=== PATIENT | female | born 1975 | race American Indian/Alaskan Native ===

== ENCOUNTER 2017-01-31 01:23 | Emergency (ER) | payer OTHER ==
[2017-01-31 01:39] VITALS: BP 149/100
[2017-01-31 01:57] LABS: Basophils % (Auto) 1.2 % (0.0-1.8); Eosinophils % (Auto) 1.7 % (0.0-4.3); Hematocrit 37.8 % (30.3-42.9); Hemoglobin 12.6 gm/dl (10.1-14.3); Mean Corpuscular HGB Conc 33 % (30-34); Mean Corpuscular Hemoglobin 27 pg (28-32); Mean Corpuscular Volume 80 fl (79-97); Platelet Count 347 K/mm3 (140-440); Red Blood Count 4.74 M/mm3 (3.65-5.03); Red Cell Distribution Width 17.5 % (13.2-15.2); White Blood Count 4.7 K/mm3 (4.5-11.0)
[2017-01-31 02:16] LABS: Alanine Aminotransferase 13 units/L (7-56); Albumin 4.2 g/dL (3.9-5); Albumin/Globulin Ratio 1.2 %; Alkaline Phosphatase 49 units/L (35-129); Anion Gap 18 mmol/L; BUN/Creatinine Ratio 18.88; Blood Urea Nitrogen 17 mg/dL (7-17); Calcium 9.2 mg/dL (8.4-10.2); Carbon Dioxide 23 mmol/L (22-30); Chloride 99.2 mmol/L (98-107); Glucose 97 mg/dL (65-100); Lipase 32 units/L (13-60); Potassium 4.1 mmol/L (3.6-5.0); Sodium 136 mmol/L (137-145); Total Protein 7.6 g/dL (6.3-8.2)
[2017-01-31 02:27] LABS: INR 1.03 (0.87-1.13)
[2017-01-31 02:28] LABS: Partial Thromboplastin Time 28.1 Sec. (24.2-36.6)
== END 2017-01-31 04:21 | disposition left against medical advice (07) ==
LOC: ED 01:23
DX: R10.9 Unspecified abdominal pain (principal); R11.10 Vomiting, unspecified; M54.9 Dorsalgia, unspecified; Z53.21 Procedure and treatment not carried out due to patient leaving prior to being seen by health care provider
CPT/HCPCS: 36415; 80053; 83690; 84484; 84703; 85025; 85610; 85730; 93005; 93010

== ENCOUNTER 2018-10-07 21:22 | Emergency (ER) | payer SELFPAY ==
--- NOTE | 2018-10-07 21:42 | Emergency Department Report ---
Blank Doc - Documentation Documentation: This is a 43-year-old female that presents with abdominal pain and n/v. This initial assessment/diagnostic orders/clinical plan/treatment(s) is/are subject to change based on patient's health status, clinical progression and re- assessment by fellow clinical providers in the ED. Further treatment and workup at subsequent clinical providers discretion. Patient/guardians urged not to elope from the ED as their condition may be serious if not clinically assessed and managed. Initial orders include: 1- Patient sent to [facility] for further evaluation and treatment 2- labs 3- UA
[2018-10-07 21:44] VITALS: BP 131/95
[2018-10-07 22:00] LABS: Basophils # (Auto) 0.1 K/mm3 (0.0-0.1); Basophils % (Auto) 1.1 % (0.0-1.8); Eosinophils # (Auto) 0.1 K/mm3 (0.0-0.4); Eosinophils % (Auto) 1.2 % (0.0-4.3); Hematocrit 36.9 % (30.3-42.9); Hemoglobin 12.1 gm/dl (10.1-14.3); Lymphocytes # (Auto) 1.7 K/mm3 (1.2-5.4); Lymphocytes % (Auto) 31.7 % (13.4-35.0); Mean Corpuscular HGB Conc 33 % (30-34); Mean Corpuscular Volume 81 fl (79-97); Monocytes # (Auto) 0.6 K/mm3 (0.0-0.8); Monocytes % (Auto) 10.3 % (0.0-7.3); Platelet Count 378 K/mm3 (140-440); Red Blood Count 4.57 M/mm3 (3.65-5.03); Red Cell Distribution Width 15.3 % (13.2-15.2)
[2018-10-07 22:23] LABS: Alanine Aminotransferase 12 units/L (7-56); Albumin 3.8 g/dL (3.9-5); BUN/Creatinine Ratio 12; Blood Urea Nitrogen 12 mg/dL (7-17); Calcium 8.9 mg/dL (8.4-10.2); Hemolysis Index 15
[2018-10-07 22:28] LABS: Bilirubin,Direct < 0.2 mg/dL (0-0.2)
== END 2018-10-07 23:10 | disposition left against medical advice (07) ==
LOC: ED 21:22
DX: R10.9 Unspecified abdominal pain (principal); R11.2 Nausea with vomiting, unspecified; Z53.21 Procedure and treatment not carried out due to patient leaving prior to being seen by health care provider
CPT/HCPCS: 36415; 80048; 80076; 83690; 84703; 85025

== ENCOUNTER 2019-04-02 21:47 | Emergency (ER) | payer BC ==
[2019-04-02 21:55] VITALS: BP 182/102
[2019-04-02] MEDS ORDERED: ASPIRIN 325 MG TAB PO ONE (22:10)
--- NOTE | 2019-04-02 22:11 | Event Note ---
ED Screening Note Date of service: 04/02/19 Time: 22:07 ED Screening Note: This is a 43 y.o. F. that presents to the ER with chest pain and headache for 1 hour. PMH of HTN, HLD, aortic aneurysm, and thoracic aneurysm Patient states it feel like someone is sitting on her chest. This initial assessment/diagnostic orders/clinical plan/treatment(s) is/are subject to change based on patients health status, clinical progression and re- assessment by fellow clinical providers in the ED. Further treatment and workup at subsequent clinical providers discretion. Patient/guardian urged not to elope from the ED as their condition may be serious if not clinically assessed and managed. Initial orders include: Labs, EKG, & CXR
[2019-04-02 22:50] LABS: Basophils % (Auto) 0.4 % (0.0-1.8); Eosinophils # (Auto) 0.1 K/mm3 (0.0-0.4); Eosinophils % (Auto) 1.6 % (0.0-4.3); Hematocrit 32.3 % (30.3-42.9); Hemoglobin 10.4 gm/dl (10.1-14.3); Lymphocytes # (Auto) 1.4 K/mm3 (1.2-5.4); Lymphocytes % (Auto) 36.2 % (13.4-35.0); Mean Corpuscular HGB Conc 32 % (30-34); Mean Corpuscular Volume 75 fl (79-97); Monocytes # (Auto) 0.6 K/mm3 (0.0-0.8); Monocytes % (Auto) 15.6 % (0.0-7.3); Platelet Count 284 K/mm3 (140-440); Red Blood Count 4.31 M/mm3 (3.65-5.03); Red Cell Distribution Width 16.7 % (13.2-15.2)
--- NOTE | 2019-04-02 23:12 | XRay Report ---
CHEST 1 VIEW INDICATION / CLINICAL INFORMATION: Chest Pain. COMPARISON: 04/30/2016 FINDINGS: SUPPORT DEVICES: None. HEART / MEDIASTINUM: No significant abnormality. LUNGS / PLEURA: No significant pulmonary or pleural abnormality. No pneumothorax. ADDITIONAL FINDINGS: No significant additional findings. IMPRESSION: 1. No acute findings. Signer Name: Santana Cotton MD Signed: 04/02/2019 11:08 PM Workstation Name: [id number]
[2019-04-02 23:13] LABS: BUN/Creatinine Ratio 21; Blood Urea Nitrogen 17 mg/dL (7-17); Calcium 8.5 mg/dL (8.4-10.2); Hemolysis Index 3
== END 2019-04-02 23:45 | disposition left against medical advice (07) ==
LOC: ED 21:47
DX: R07.89 Other chest pain (principal); Z53.21 Procedure and treatment not carried out due to patient leaving prior to being seen by health care provider
CPT/HCPCS: 36415; 71045; 80048; 84484; 85025; 93005; 93010

== ENCOUNTER 2020-11-21 21:21 | Observation (INO) | payer BC, OTHER ==
[2020-11-21] MEDS ORDERED: ASPIRIN 325 MG TAB PO ONE (21:59)
[2020-11-21] MEDS ORDERED: SODIUM CHLORIDE 0.9% 1000 ML 1,000 ML IV ONE (22:23)
[2020-11-21] MEDS ORDERED: MORPHINE 4 MG/1 ML INJ IV ONE (22:23)
[2020-11-21] MEDS ORDERED: ONDANSETRON 4 MG/2 ML INJ IV ONE (22:23)
[2020-11-21 22:24] LABS: Basophils % (Auto) 0.8 % (0.0-1.8); Eosinophils % (Auto) 0.4 % (0.0-4.3); Hematocrit 32.2 % (30.3-42.9); Hemoglobin 10.4 gm/dl (10.1-14.3); Lymphocytes # (Auto) 1.1 K/mm3 (1.2-5.4); Lymphocytes % (Auto) 20.2 % (13.4-35.0); Mean Corpuscular HGB Conc 32 % (30-34); Mean Corpuscular Volume 75 fl (79-97); Monocytes # (Auto) 0.4 K/mm3 (0.0-0.8); Monocytes % (Auto) 6.8 % (0.0-7.3); Platelet Count 392 K/mm3 (140-440); Red Blood Count 4.29 M/mm3 (3.65-5.03); Red Cell Distribution Width 17.8 % (13.2-15.2)
--- NOTE | 2020-11-21 22:28 | Emergency Department Report ---
ED Chest Pain HPI - General Chief Complaint: Chest Pain Stated Complaint: CHEST/BACK PAIN/HEADACHE Time Seen by Provider: 11/21/20 22:08 Source: patient Mode of arrival: Ambulatory Limitations: No Limitations - History of Present Illness Initial Comments: This is a 45-year-old -[place] female presents to the emergency department with a complaint of mid to upper thoracic back pain with radiation to the middle of her chest that started about a few hours prior to presentation. She says that it is a severe pressure-like discomfort and it worsens when laying flat. Currently she says it is 9 out of 10 in intensity. Patient also had a headache earlier that has since resolved. She denies any fever, cough, shortness of breath, lower extremity swelling, nausea, vomiting or diaphoresis. The patient has a past medical history of hypertension, thoracic aneurysm, high cholesterol, sleep apnea, and has a history of a left nephrectomy secondary to renal cancer. She has not taken anything for symptoms prior to presentation today. She has a significant family history of early cardiac disease in her mother and father who had MIs in their late 30s and early 40s. Denies tobacco or illicit drug use. No recent travel or sick contacts at home. Her primary care physician is through [facility], and she follows with Dr. Brewer for cardiology. Severity scale (0 -10): 10 - Related Data Home Medications Medication Instructions Recorded Confirmed Last Taken Valsartan/Hydrochlorothiazide 1 tab PO QDAY 05/26/15 12/26/17 05/26/15 06:00 [Diovan Hct 160-25 mg] Previous Rx's Medication Instructions Recorded Last Taken Type Simvastatin (Nf) [Zocor TAB] 20 mg PO QHS #30 tablet 03/03/15 05/25/15 22:00 Rx Famotidine [Pepcid] 20 mg PO BID #30 tablet 12/27/17 Unknown Rx carvediloL [Coreg] 6.25 mg PO BID 30 Days tablet 12/27/17 Unknown Rx traMADoL [Ultram 50 MG tab] 50 mg PO Q6HR PRN #12 tablet 12/27/17 Unknown Rx Allergies Allergy/AdvReac Type Severity Reaction Status Date / Time No Known Allergies Allergy Verified 12/26/17 18:18 Heart Score - HEART Score History: Moderately suspicious EKG: Normal Age: 45-65 Risk factors: 1-2 risk factors Troponin: < normal limit HEART Score: 3 - EKG Read Time Time EKG Completed: 21:33 EKG Read Time: 21:34 - Critical Actions Critical Actions: 0-3 pts:0.9-1.7%risk of adverse cardiac event.Candidate for discharge ED Review of Systems ROS: Stated complaint: CHEST/BACK PAIN/HEADACHE Other details as noted in HPI ED Past Medical Hx - Past Medical History Previous Medical History?: Yes Hx Hypertension: Yes Hx Heart Attack/AMI: No Hx Congestive Heart Failure: No Hx Diabetes: No Hx Deep Vein Thrombosis: No Hx Pulmonary Embolism: No Hx Arthritis: Yes Hx Asthma: No Hx COPD: No Hx Tuberculosis: No Hx HIV: No Additional medical history: AAA-- 4.1 CM IN OCTOBER. HIGH CHOLESTEROL, sleep apnea, aortic anurism - Surgical History Hx Coronary Stent: No Hx Pacemaker: No Hx Internal Defibrillator: No Additional Surgical History: TONSILLECTOMY, gastric sleeve 12/01/18. L partial kidney removal, secondary to Ca 03/2020 - Social History Smoking Status: Never Smoker Substance Use Type: None - Medications Home Medications: Home Medications Medication Instructions Recorded Confirmed Last Taken Type Simvastatin (Nf) [Zocor TAB] 20 mg PO QHS #30 tablet 03/03/15 12/26/17 05/25/15 22:00 Rx Valsartan/Hydrochlorothiazide 1 tab PO QDAY 05/26/15 12/26/17 05/26/15 06:00 History [Diovan Hct 160-25 mg] Famotidine [Pepcid] 20 mg PO BID #30 tablet 12/27/17 Unknown Rx carvediloL [Coreg] 6.25 mg PO BID 30 Days tablet 12/27/17 Unknown Rx traMADoL [Ultram 50 MG tab] 50 mg PO Q6HR PRN #12 tablet 12/27/17 Unknown Rx ED Physical Exam - General Limitations: No Limitations - Other Other exam information: GENERAL: The patient is well-developed well-nourished. HENT: Normocephalic. Atraumatic. Patient has moist mucous membranes. EYES: Extraocular motions are intact. NECK: Supple. Trachea is midline. CHEST/LUNGS: Clear to auscultation. There is no respiratory distress noted. Unable to reproduce chest pain to palpation of the chest wall. HEART/CARDIOVASCULAR: Regular. There is no tachycardia. There is no murmur. ABDOMEN: Abdomen is soft, nontender. Patient has normal bowel sounds. SKIN: Skin is warm and dry. NEURO: The patient is awake, alert, and oriented. The patient is cooperative. The patient has no focal neurologic deficits. Normal speech. MUSCULOSKELETAL: There is no tenderness or deformity. There is no limitation range of motion. BACK: No midline thoracic or lumbar tenderness to palpation. ED Course Vital Signs 11/21/20 11/21/20 21:40 22:12 Temperature 99.1 F Pulse Rate 103 H Respiratory 20 18 Rate Blood Pressure 146/98 Blood Pressure 134/89 [Left] O2 Sat by Pulse 100 Oximetry HITESH score - Hitesh Score Age > 65: (0) No Aspirin use within the Past 7 Days: (0) No 3 or more CAD Risk Factors: (1) Yes 2 or more Angina events in past 24 hrs: (1) Yes Known CAD with more than 50% Stenosis: (0) No Elevated Cardiac Markers: (0) No ST Deviation Greater than 0.5mm: (0) No HITESH Score: 2 ED Medical Decision Making - Lab Data Result diagrams: 11/21/20 22:12 11/21/20 22:12 - EKG Data -: EKG Interpreted by Me EKG shows normal: sinus rhythm, axis, intervals, QRS complexes (LVH), ST-T waves Rate: normal - EKG Data When compared to previous EKG there are: no significant change Interpretation: unchanged when compared t (04/02/19) - Radiology Data Radiology results: report reviewed, image reviewed interpreted by me: Chest x-ray does not show any acute process. There are no pleural effusions, obvious pneumonia and there is no pneumothorax. No significant cardiomegaly. No widened mediastinum. CTA CHEST WITH IV CONTRAST INDICATION / CLINICAL INFORMATION: Back and Chest pain, Hx of Thoracic Aneurysm. TECHNIQUE: Axial CT images were obtained through the chest after injection of 100 cc Omnipaque 350 milligrams percent IV c ontrast. 3 plane MIP and/or 3D reconstructions were produced. All CT scans at this location are performed using CT dose reduction for ALARA by means of automated exposure control. COMPARISON: 12/26/2017 and CTA chest FINDINGS: PULMONARY ARTERIES: No pulmonary emboli. THORACIC AORTA: Slight ectasia of the ascending thoracic aorta without evidence of dissection or aneurysm HEART: No significant abnormality. CORONARY ARTERIES: No significant calcification. PLEURA: No pleural effusion. No pneumothorax. LYMPH NODES: No significant adenopathy. LUNGS: No acute air space or interstitial disease. ADDITIONAL FINDINGS: None. UPPER ABDOMEN: No acute findings. SKELETAL STRUCTURES: No significant osseous abnormality. IMPRESSION: 1. No CT evidence for pulmonary embolism. 2. Slight ectasia of the ascending thoracic aorta without interval change as compared 12/26/2017 - Medical Decision Making This patient presents with some acute substernal chest pain and pain to the middle of her upper back that started just prior to presentation. Heart and lung sounds are normal to auscultation. EKG did not have any morphology consistent with ST elevation myocardial infarction. Chest x-ray does not show any pneumonia, pleural effusions, pneumothorax, widened mediastinum, or any acute process. Labs have thus far been unremarkable including CBC, metabolic panel and a negative troponin. Given her history of a thoracic aneurysm and her current chest to back pain, the patient had a CT angiography of the chest that did not show any pulmonary embolism, dissection, significant aneurysm, or any other acute process. Patient was given pain medication with only some slight improvement. She has a moderate heart score. It has been a few years since the patient last had a stress test and she follows with Dr. Brewer. She will be admitted to the hospital for further evaluation and treatment and was accepted for admission by the hospitalist, Dr. Llanes. Critical Care Time: No Critical care attestation.: If time is entered above; I have spent that time in minutes in the direct care of this critically ill patient, excluding procedure time. ED Disposition Clinical Impression: Acute chest pain, Chest pain, rule out acute myocardial infarction, Angina at rest Disposition: OP ADMIT IP TO THIS HOSP Is pt being admited?: Yes Condition: Fair Time of Disposition: 02:13
[2020-11-21 22:48] LABS: INR 0.97 (0.87-1.13)
[2020-11-21 22:48] LABS: Alanine Aminotransferase 7 units/L (7-56); Albumin 4.6 g/dL (3.9-5); Blood Urea Nitrogen 11 mg/dL (7-17); Calcium 9.1 mg/dL (8.4-10.2); Hemolysis Index 2
[2020-11-21 22:49] LABS: BUN/Creatinine Ratio 16
[2020-11-21 22:49] LABS: Partial Thromboplastin Time 29.3 Sec. (24.2-36.6)
--- NOTE | 2020-11-21 22:52 | XRay Report ---
CHEST 2 VIEWS INDICATION: CP. COMPARISON: FINDINGS: Support devices: None. Heart: Within normal limits. Lungs: No acute air space or interstitial disease. Pleura: No significant pleural effusion. No pneumothorax. Additional findings: None. IMPRESSION: 1. No acute findings. Signer Name: Dawson Ugalde MD Signed: 11/21/2020 10:47 PM Workstation Name: [id number]
--- NOTE | 2020-11-22 00:48 | Cat Scan Report ---
CTA CHEST WITH IV CONTRAST INDICATION / CLINICAL INFORMATION: Back and Chest pain, Hx of Thoracic Aneurysm. TECHNIQUE: Axial CT images were obtained through the chest after injection of 100 cc Omnipaque 350 milligrams pe rcent IV contrast. 3 plane MIP and/or 3D reconstructions were produced. All CT scans at this location are performed using CT dose reduction for ALARA by means of automated exposure control. COMPARISON: 12/26/2017 and CTA chest FINDINGS: PULMONARY ARTERIES: No pulmonary emboli. THORACIC AORTA: Slight ectasia of the ascending thoracic aorta without evidence of dissection or aneu rysm HEART: No significant abnormality. CORONARY ARTERIES: No significant calcification. PLEURA: No pleural effusion. No pneumothorax. LYMPH NODES: No significant adenopathy. LUNGS: No acute air space or interstitial disease. ADDITIONAL FINDINGS: None. UPPER ABDOMEN: No acute findings. SKELETAL STRUCTURES: No significant osseous abnormality. IMPRESSION: 1. No CT evidence for pulmonary embolism. 2. Slight ectasia of the ascending thoracic aorta without interval change as compared 12/26/2017 Signer Name: Dawson Ugalde MD Signed: 11/22/2020 12:44 AM Workstation Name: [id number]
[2020-11-22] MEDS ORDERED: traMADol 50 MG TAB PO PRN (01:48)
[2020-11-22] MEDS ORDERED: MORPHINE 2 MG/1 ML INJ IV PRN (01:48)
[2020-11-22] MEDS ORDERED: NITROGLYCERIN 0.4 MG TAB SUBL SL PRN (01:48)
[2020-11-22] MEDS ORDERED: ALBUTEROL 2.5 MG/3 ML NEBU IH PRN (01:48)
[2020-11-22] MEDS ORDERED: ACETAMINOPHEN 325 MG TAB PO PRN ×2 (01:48)
[2020-11-22] MEDS ORDERED: ONDANSETRON 4 MG/2 ML INJ IV PRN (01:48)
[2020-11-22] MEDS ORDERED: hydrALAZINE 20 MG/1 ML INJ IV PRN (01:53)
--- NOTE | 2020-11-22 01:57 | History and Physical Report ---
History of Present Illness Date of examination: 11/22/20 Date of admission: 11/22/20 01:13 Chief complaint: Chest pain History of present illness: 45-year-old -[place] female with history of hypertension, thoracic aneurysm, high cholesterol, sleep apnea, and has a history of a left nephrectomy secondary to renal cancer was brought to the emergency department with a complaint of mid to upper thoracic back pain with radiation to the middle of her chest 9/10 for few hours prior to presentation. She says that it is a severe pressure-like discomfort and it worsens when laying flat. Patient also had a headache earlier that has since resolved. She denies any fever, cough, shortness of breath, lower extremity swelling, nausea, vomiting or diaphoresis. She has not taken anything for symptoms prior to presentation today. She has a significant family history of early cardiac disease in her mother and father who had MIs in their late 30s and early 40s. Denies tobacco or illicit drug use. No recent travel or sick contacts at home. Her primary care physician is through [facility] [place], and she follows with Dr. Brewer for cardiology. In the emergency room initial cardiac enzyme is negative troponin is 0.010 Past History Past Medical History: arthritis, hypertension, hyperlipidemia, other (Aortic aneurysm sleep apnea) Past Surgical History: Other (Left nephrectomy) Medications and Allergies Allergies Allergy/AdvReac Type Severity Reaction Status Date / Time No Known Allergies Allergy Verified 12/26/17 18:18 Home Medications Medication Instructions Recorded Confirmed Last Taken Type Simvastatin (Nf) [Zocor TAB] 20 mg PO QHS #30 tablet 03/03/15 12/26/17 05/25/15 22:00 Rx Valsartan/Hydrochlorothiazide 1 tab PO QDAY 05/26/15 12/26/17 05/26/15 06:00 History [Diovan Hct 160-25 mg] Famotidine [Pepcid] 20 mg PO BID #30 tablet 12/27/17 Unknown Rx carvediloL [Coreg] 6.25 mg PO BID 30 Days tablet 12/27/17 Unknown Rx traMADoL [Ultram 50 MG tab] 50 mg PO Q6HR PRN #12 tablet 12/27/17 Unknown Rx Active Meds: Active Medications Sodium Chloride (Nacl 0.9% 1000 Ml) 1,000 mls @ 125 mls/hr IV ONCE ONE Stop: 11/22/20 06:22 Last Admin: 11/21/20 23:42 Dose: 125 mls/hr Documented by: Review of Systems Cardiovascular: chest pain Exam - Constitutional Vitals: Temp Pulse Resp BP Pulse Ox 99.1 F 103 H 18 134/89 100 11/21/20 21:40 11/21/20 21:40 11/21/20 22:12 11/21/20 21:40 11/21/20 21:40 General appearance: Present: no acute distress, well-nourished - EENT Eyes: Present: PERRL ENT: hearing intact, clear oral mucosa - Neck Neck: Present: supple, normal ROM - Respiratory Respiratory effort: normal Respiratory: bilateral: CTA - Cardiovascular Heart Sounds: Present: S1 & S2. Absent: rub, click - Extremities Extremities: pulses symmetrical, No edema Peripheral Pulses: within normal limits - Abdominal General gastrointestinal: Present: soft, non-tender, non-distended, normal bowel sounds Female genitourinary: Present: normal - Integumentary Integumentary: Present: clear, warm, dry - Musculoskeletal Musculoskeletal: gait normal, strength equal bilaterally - Psychiatric Psychiatric: appropriate mood/affect, intact judgment & insight - Neurologic Neurologic: CNII-XII intact, moves all extremities HEART Score - HEART Score EKG: Normal Age: 45-65 Risk factors: 1-2 risk factors Troponin: Troponin T 0.012 ng/mL (0.00-0.029) 11/22/20 00:58 Troponin: < normal limit - Critical Actions Critical Actions: 0-3 pts:0.9-1.7%risk of adverse cardiac event.Candidate for discharge Results - Labs CBC & Chem 7: 11/21/20 22:12 11/21/20 22:12 Labs: Laboratory Last Values WBC 5.5 K/mm3 (4.5-11.0) 11/21/20 22:12 RBC 4.29 M/mm3 (3.65-5.03) 11/21/20 22:12 Hgb 10.4 gm/dl (10.1-14.3) 11/21/20 22:12 Hct 32.2 % (30.3-42.9) 11/21/20 22:12 MCV 75 fl (79-97) L 11/21/20 22:12 MCH 24 pg (28-32) L 11/21/20 22:12 MCHC 32 % (30-34) 11/21/20 22:12 RDW 17.8 % (13.2-15.2) H 11/21/20 22:12 Plt Count 392 K/mm3 (140-440) 11/21/20 22:12 Lymph % (Auto) 20.2 % (13.4-35.0) 11/21/20 22:12 [place] % (Auto) 6.8 % (0.0-7.3) 11/21/20 22:12 Eos % (Auto) 0.4 % (0.0-4.3) 11/21/20 22:12 Baso % (Auto) 0.8 % (0.0-1.8) 11/21/20 22:12 Lymph # (Auto) 1.1 K/mm3 (1.2-5.4) L 11/21/20 22:12 [place] # (Auto) 0.4 K/mm3 (0.0-0.8) 11/21/20 22:12 Eos # (Auto) 0.0 K/mm3 (0.0-0.4) 11/21/20 22:12 Baso # (Auto) 0.0 K/mm3 (0.0-0.1) 11/21/20 22:12 Seg Neutrophils % 71.8 % (40.0-70.0) H 11/21/20 22:12 Seg Neutrophils # 4.0 K/mm3 (1.8-7.7) 11/21/20 22:12 PT 13.5 Sec. (12.2-14.9) 11/21/20 22:18 INR 0.97 (0.87-1.13) 11/21/20 22:18 APTT 29.3 Sec. (24.2-36.6) 11/21/20 22:18 Sodium 139 mmol/L (137-145) 11/21/20 22:12 Potassium 3.7 mmol/L (3.6-5.0) 11/21/20 22:12 Chloride 102.1 mmol/L (98-107) 11/21/20 22:12 Carbon Dioxide 22 mmol/L (22-30) 11/21/20 22:12 Anion Gap 19 mmol/L 11/21/20 22:12 BUN 11 mg/dL (7-17) 11/21/20 22:12 Creatinine 0.7 mg/dL (0.6-1.2) 11/21/20 22:12 Estimated GFR > 60 ml/min 11/21/20 22:12 BUN/Creatinine Ratio 16 % 11/21/20 22:12 Glucose 95 mg/dL (65-100) 11/21/20 22:12 Calcium 9.1 mg/dL (8.4-10.2) 11/21/20 22:12 Total Bilirubin 0.30 mg/dL (0.1-1.2) 11/21/20 22:12 AST 15 units/L (5-40) 11/21/20 22:12 ALT 7 units/L (7-56) 11/21/20 22:12 Alkaline Phosphatase 80 units/L (35-129) 11/21/20 22:12 Troponin T 0.012 ng/mL (0.00-0.029) 11/22/20 00:58 Total Protein 7.5 g/dL (6.3-8.2) 11/21/20 22:12 Albumin 4.6 g/dL (3.9-5) 11/21/20 22:12 Albumin/Globulin Ratio 1.6 % 11/21/20 22:12 - Imaging and Cardiology CT scan - chest: report reviewed Assessment and Plan VTE prophylaxis?: Chemical Plan of care discussed with patient/family: Yes - Patient Problems (1) Acute coronary syndrome Current Visit: Yes Status: Acute Plan to address problem: Admit the patient to the medical telemetry. Aspirin 325 mg p.o. daily. Lipitor 80 mg p.o. daily. Nitroglycerin 1 inch to the chest wall every 6 hours. We do the serial cardiac enzyme. We also do echocardiogram and consult cardiology (2) Aortic aneurysm Current Visit: No Status: Acute Plan to address problem: Stable. We will continue the home medication. Will consult cardiology for evaluation (3) HTN (hypertension) Current Visit: No Status: Chronic Qualifiers: Hypertension type: essential hypertension Qualified Code(s): I10 - Essential (primary) hypertension Plan to address problem: Hydrochlorothiazide 25 mg p.o. daily, hydralazine 10 mg every 6 hours as needed. Diovan 160 mg p.o. daily. We will monitor the blood pressure closely (4) Hyperlipidemia Current Visit: No Status: Chronic Qualifiers: Hyperlipidemia type: Mixed hyperlipidemia Qualified Code(s): E78.2 - Mixed hyperlipidemia Plan to address problem: We will put the patient on Lipitor 80 mg p.o. daily. We will recheck the lipid panel in the morning (5) DVT prophylaxis Current Visit: No Status: Acute Plan to address problem: Heparin 5000 units subcu every 8 hours for DVT prophylaxis. Pepcid 20 mg p.o. twice daily for GI prophylaxis. Patient is a full code
[2020-11-22] MEDS: HEPARIN 5,000 UNIT/1 ML VIAL SUB-Q SCH ×3 (05:08→21:27)
[2020-11-22] MEDS ORDERED: NITROGLYCERIN 2% OINT 1 GM TP SCH (06:00)
[2020-11-22 06:24] LABS: Basophils % (Auto) 0.9 % (0.0-1.8); Eosinophils % (Auto) 0.9 % (0.0-4.3); Hematocrit 30.5 % (30.3-42.9); Hemoglobin 10.4 gm/dl (10.1-14.3); Lymphocytes # (Auto) 1.3 K/mm3 (1.2-5.4); Lymphocytes % (Auto) 27.2 % (13.4-35.0); Mean Corpuscular HGB Conc 34 % (30-34); Mean Corpuscular Volume 74 fl (79-97); Monocytes # (Auto) 0.6 K/mm3 (0.0-0.8); Monocytes % (Auto) 11.9 % (0.0-7.3); Platelet Count 349 K/mm3 (140-440); Red Blood Count 4.13 M/mm3 (3.65-5.03); Red Cell Distribution Width 17.9 % (13.2-15.2)
[2020-11-22 06:43] LABS: Blood Urea Nitrogen 7 mg/dL (7-17); Calcium 8.6 mg/dL (8.4-10.2); Hemolysis Index 0
[2020-11-22 06:46] LABS: BUN/Creatinine Ratio 14
[2020-11-22] MEDS: IPRATROPIUM/ALBUTEROL SULFATE 3 ML AMPUL.NEB IH SCH ×4 (07:20→21:43)
--- NOTE | 2020-11-22 09:53 | Consultation ---
History of Present Illness Consult date: 11/22/20 Requesting physician: DALE GRANADOS Consult reason: chest pain History of present illness: Primary Process Improvement Analyst: Rory Brewer Pt is a 45-year-old AA female with a hx of TAA (4.3cm 11/2018) and HTN who presented with complaints of back pain and chest pain. Pt states she was standing outside with family the AM prior to arrival when she felt a sudden "squeezing" pain in the upper mid thoracic area of her back. She states the pain was constant and severe, and shortly after began radiating to the center of her chest. Similarly, she describes the chest pain as "squeezing pressure." Pain exacerbated by lying back. She notes some relief when sitting up. No additional cardiac complaints. Trop neg x 4. ECG reveals no acute ischemic changes. Chest CTA revealed no evidence of PE, slight ectasia of ascending thoracic aortia without interval changes compared to 12/2017 & no evidence of dissection or aneurysm. Lexiscan stress MPI 12/2017 - no evidence of significant ischemia. Echo 10/2015 - EF 55-60%, asymmetric thickening of the interventricular septum (may be overestimated), impaired LV relaxation, normal RV fxn, no significant valvular abnormalities. Past History Past Medical History: arthritis, hypertension, hyperlipidemia, other (TAA) Past Surgical History: Other (L nephrectomy). denies: valve replacement, CABG, PTCA Social history: smoking (former). denies: alcohol abuse Family history: CAD Medications and Allergies Allergies Allergy/AdvReac Type Severity Reaction Status Date / Time No Known Allergies Allergy Verified 12/26/17 18:18 Home Medications Medication Instructions Recorded Confirmed Last Taken Type Losartan [Cozaar] 25 mg PO QDAY 11/22/20 11/22/20 1 Day Ago History ~11/21/20 amLODIPine [Norvasc] 5 mg PO DAILY 11/22/20 11/22/20 1 Day Ago History ~11/21/20 carvediloL [Coreg] 25 mg PO BID 11/22/20 11/22/20 1 Day Ago History ~11/21/20 Active Meds: Active Medications Acetaminophen (Acetaminophen 325 Mg Tab) 650 mg PO Q4H PRN PRN Reason: Pain MILD(1-3)/Fever >100.5/REINA Albuterol (Albuterol 2.5 Mg/3 Ml Nebu) 2.5 mg IH Q4HRT PRN PRN Reason: Shortness Of Breath Albuterol/Ipratropium (Ipratropium/Albuterol Sulfate 3 Ml Ampul.Neb) 1 ampul IH Q6HRT [facility] Last Admin: 11/22/20 09:15 Dose: Not Given Documented by: Aspirin (Aspirin Ec 325 Mg Tab) 325 mg PO QDAY [facility] Atorvastatin Calcium (Atorvastatin 40 Mg Tab) 80 mg PO QHS [facility] Carvedilol (Carvedilol 6.25 Mg Tab) 6.25 mg PO BID@0800,1700 [facility] Famotidine (Famotidine 20 Mg Tab) 20 mg PO BID [facility] Heparin Sodium (Porcine) (Heparin 5,000 Unit/1 Ml Vial) 5,000 unit SUB-Q Q8HR [facility] Last Admin: 11/22/20 05:08 Dose: 5,000 unit Documented by: Hydralazine HCl (Hydralazine 20 Mg/1 Ml Inj) 10 mg IV Q6H PRN PRN Reason: htn Hydrochlorothiazide (Hydrochlorothiazide 25 Mg Tab) 25 mg PO QDAY [facility] Morphine Sulfate (Morphine 2 Mg/1 Ml Inj) 2 mg IV Q5MIN PRN PRN Reason: Chest Pain Last Admin: 11/22/20 04:12 Dose: 2 mg Documented by: Nitroglycerin (Nitroglycerin 2% Oint 1 Gm) 1 inch TP TIDNTG [facility]; Protocol Last Admin: 11/22/20 05:08 Dose: Not Given Documented by: Nitroglycerin (Nitroglycerin 0.4 Mg Tab Subl) 0.4 mg SL Q5M PRN PRN Reason: Chest Pain Ondansetron HCl (Ondansetron 4 Mg/2 Ml Inj) 4 mg IV Q8H PRN PRN Reason: Nausea And Vomiting Sodium Chloride (Sodium Chloride 0.9% 10 Ml Flush Syringe) 10 ml IV BID [facility] Sodium Chloride (Sodium Chloride 0.9% 10 Ml Flush Syringe) 10 ml IV PRN PRN PRN Reason: LINE FLUSH Tramadol HCl (Tramadol 50 Mg Tab) 50 mg PO Q6H PRN PRN Reason: Pain, Moderate (4-6) Valsartan (Valsartan 160mg Tab) 160 mg PO QDAY [facility] Review of Systems Constitutional: no fever, no chills, no sweats Ears, nose, mouth and throat: no nasal congestion, no sore throat Cardiovascular: chest pain, no orthopnea, no palpitations, no edema, no syncope, no lightheadedness, no shortness of breath, no dyspnea on exertion, no paroxysmal nocturnal dyspnea, no claudication Respiratory: no cough, no shortness of breath, no dyspnea on exertion Gastrointestinal: no abdominal pain, no nausea, no vomiting, no diarrhea, no constipation Genitourinary Female: no pelvic pain, no flank pain, no dysuria Musculoskeletal: other (mid back pain), no neck stiffness, no neck pain Integumentary: no rash, no wounds Neurological: no head injury, no paralysis, no weakness, no parathesias, no numbness, no tingling, no seizures, no syncope, no vertigo, no headaches Endocrine: no cold intolerance, no heat intolerance, no polydipsia, no polyuria Hematologic/Lymphatic: no easy bruising, no easy bleeding Allergic/Immunologic: no anaphylaxis Physical Examination Last Vital Signs Temp 97.9 F 11/22/20 16:42 Pulse 74 11/22/20 16:42 Resp 18 11/22/20 16:42 BP 121/84 11/22/20 16:42 Pulse Ox 100 11/22/20 16:42 General appearance: no acute distress HEENT: Positive: EOMI, Normocephaly, Mucus Membranes Moist Neck: Positive: neck supple, trachea midline. Negative: JVD/HJR Cardiac: Positive: Reg Rate and Rhythm, S1/S2. Negative: Audible Murmur Lungs: Positive: clear to auscultation (bilaterally) Neuro: Positive: Grossly Intact Abdomen: Positive: Soft. Negative: Tender Skin: Negative: Rash Musculoskeletal: No Pain Extremities: Present: upper extr. pulses, lower extr. pulses. Absent: edema Results 11/22/20 06:02 11/22/20 06:02 Cardiac Enzymes 11/21/20 Range/Units 22:12 AST 15 (5-40) units/L Coagulation 11/21/20 Range/Units 22:18 PT 13.5 (12.2-14.9) Sec. INR 0.97 (0.87-1.13) APTT 29.3 (24.2-36.6) Sec. CBC 11/21/20 11/22/20 Range/Units 22:12 06:02 WBC 5.5 4.9 (4.5-11.0) K/mm3 RBC 4.29 4.13 (3.65-5.03) M/mm3 Hgb 10.4 10.4 (10.1-14.3) gm/dl Hct 32.2 30.5 (30.3-42.9) % Plt Count 392 349 (140-440) K/mm3 Lymph # (Auto) 1.1 L 1.3 (1.2-5.4) K/mm3 [place] # (Auto) 0.4 0.6 (0.0-0.8) K/mm3 Eos # (Auto) 0.0 0.0 (0.0-0.4) K/mm3 Baso # (Auto) 0.0 0.0 (0.0-0.1) K/mm3 Comprehensive Metabolic Panel 11/21/20 11/22/20 Range/Units 22:12 06:02 Sodium 139 138 (137-145) mmol/L Potassium 3.7 3.6 (3.6-5.0) mmol/L Chloride 102.1 101.9 (98-107) mmol/L Carbon Dioxide 22 23 (22-30) mmol/L BUN 11 7 (7-17) mg/dL Creatinine 0.7 0.5 L (0.6-1.2) mg/dL Glucose 95 77 (65-100) mg/dL Calcium 9.1 8.6 (8.4-10.2) mg/dL AST 15 (5-40) units/L ALT 7 (7-56) units/L Alkaline Phosphatase 80 (35-129) units/L Total Protein 7.5 (6.3-8.2) g/dL Albumin 4.6 (3.9-5) g/dL - Imaging and Cardiology Echo: pending, other (10/2015 - EF 55-60%, asymmetric thickening of the i nterventricular septum (may be overestimated), impaired LV relaxation, normal RV fxn, no significant valvular abnormalities) EKG: report reviewed, image reviewed - EKG Interpretation EKG: no acute changes EKG interpretations - EKG Sinus rhythms and dysrhythmias: sinus rhythm Assessment and Plan Echo pending. Plan for Lexiscan stress MPI in AM. NPO after midnight. Pt seen in conjunction with Dr. Woodward, who agrees with the assessment and plan of care. - Patient Problems (1) Chest pain Current Visit: Yes Status: Acute (2) Back pain Current Visit: Yes Status: Acute (3) Thoracic aortic aneurysm (TAA) Current Visit: Yes Status: Chronic (4) GOYO (obstructive sleep apnea) Current Visit: Yes Status: Chronic (5) HTN (hypertension) Current Visit: Yes Status: Chronic Qualifiers: Hypertension type: essential hypertension Qualified Code(s): I10 - Essential (primary) hypertension (6) Hyperlipidemia Current Visit: Yes Status: Chronic Qualifiers: Hyperlipidemia type: pure hypercholesterolemia Qualified Code(s): E78.00 - Pure hypercholesterolemia, unspecified; E78.0 - Pure hypercholesterolemia (7) GERD (gastroesophageal reflux disease) Current Visit: Yes Status: Chronic (8) Arthritis Current Visit: Yes Status: Chronic (9) Left kidney mass Current Visit: No Status: Chronic (10) S/p nephrectomy Current Visit: Yes Status: Chronic
[2020-11-22] MEDS ORDERED: hydroCHLOROthiazide 25 MG TAB PO SCH (10:00)
[2020-11-22] MEDS ORDERED: NON-FORMULARY EACH (Valsartan/Hydrochlorothiazide [Diovan Hct 160-25 Mg] 1 EACH Tablet) PO SCH (10:00)
[2020-11-22] MEDS ORDERED: VALSARTAN 160MG TAB PO SCH (10:00)
[2020-11-22] MEDS ORDERED: IBUPROFEN 400 MG TAB PO PRN (10:54)
[2020-11-22] MEDS: carvediloL 6.25 MG TAB PO SCH ×2 (10:57→16:22)
[2020-11-22] MEDS: FAMOTIDINE 20 MG TAB PO SCH ×2 (11:01→21:27)
[2020-11-22] MEDS: amLODIPine 5 MG TAB PO SCH (12:14)
[2020-11-22] MEDS: LOSARTAN 25 MG TAB PO SCH (12:15)
[2020-11-22] MEDS: carvediloL 25 MG TAB PO SCH ×2 (12:15→21:27)
--- NOTE | 2020-11-22 14:43 | Event Note ---
Date: 11/22/20 Patient was seen and evaluated this morning, patient's shortness of breath is getting better. Cardiology is following the patient. Patient admitted earlier this morning and continue management as outlined in H&P.
[2020-11-23 06:11] LABS: Basophils % (Auto) 0.5 % (0.0-1.8); Eosinophils % (Auto) 1.5 % (0.0-4.3); Hematocrit 31.9 % (30.3-42.9); Hemoglobin 10.3 gm/dl (10.1-14.3); Lymphocytes # (Auto) 0.8 K/mm3 (1.2-5.4); Lymphocytes % (Auto) 30.6 % (13.4-35.0); Mean Corpuscular HGB Conc 32 % (30-34); Mean Corpuscular Volume 75 fl (79-97); Monocytes # (Auto) 0.3 K/mm3 (0.0-0.8); Platelet Count 346 K/mm3 (140-440); Red Blood Count 4.24 M/mm3 (3.65-5.03); Red Cell Distribution Width 17.9 % (13.2-15.2)
[2020-11-23 06:30] LABS: BUN/Creatinine Ratio 17; Blood Urea Nitrogen 12 mg/dL (7-17); Calcium 9.1 mg/dL (8.4-10.2); Hemolysis Index 4
[2020-11-23] MEDS: HEPARIN 5,000 UNIT/1 ML VIAL SUB-Q SCH (07:07)
[2020-11-23] MEDS ORDERED: REGADENOSON 0.4 MG/5 ML INJ IV ONE (07:37)
--- NOTE | 2020-11-23 07:38 | Progress Note ---
Assessment and Plan Assessment and plan: (1) Acute coronary syndrome Current Visit: Yes Status: Acute Plan to address problem: Admit the patient to the medical telemetry. Aspirin 325 mg p.o. daily. Lipitor 80 mg p.o. daily. Nitroglycerin 1 inch to the chest wall every 6 hours. We do the serial cardiac enzyme. We also do echocardiogram and consult cardiology (2) Aortic aneurysm Current Visit: No Status: Acute Plan to address problem: Stable. We will continue the home medication. Will consult cardiology for evaluation (3) HTN (hypertension) Current Visit: No Status: Chronic Qualifiers: Hypertension type: essential hypertension Qualified Code(s): I10 - Essential (primary) hypertension Plan to address problem: Hydrochlorothiazide 25 mg p.o. daily, hydralazine 10 mg every 6 hours as needed. Diovan 160 mg p.o. daily. We will monitor the blood pressure closely (4) Hyperlipidemia Current Visit: No Status: Chronic Qualifiers: Hyperlipidemia type: Mixed hyperlipidemia Qualified Code(s): E78.2 - Mixed hyperlipidemia Plan to address problem: We will put the patient on Lipitor 80 mg p.o. daily. We will recheck the lipid panel in the morning (5) DVT prophylaxis Current Visit: No Status: Acute Plan to address problem: Heparin 5000 units subcu every 8 hours for DVT prophylaxis. Pepcid 20 mg p.o. twice daily for GI prophylaxis. Patient is a full code 11/23/2020 -Patient will have stress test -Reviewed echo History Interval history: Patient was seen and evaluated this morning Chest pain is getting better Hospitalist Physical - Physical exam Narrative exam: Not in cardiopulmonary distress. The patient appeared well nourished and normally developed. Vital signs as documented. Head exam is unremarkable. No scleral icterus . Neck is without jugular venous distension, thyromegaly, or carotid bruits. Lungs are clear to auscultation. Cardiac exam reveals regular rate and Rhythm. Abdominal exam reveals normal bowel sounds, nontender, no organomegaly. Extremities are nonedematous and both femoral and pedal pulses are normal. POULTRY INSEMINATOR: Alert and oriented 3. No focal weakness. - Constitutional Vitals: Temp Pulse Resp BP Pulse Ox 98.2 F 87 18 123/82 100 11/23/20 03:44 11/23/20 03:44 11/23/20 03:44 11/23/20 03:44 11/23/20 03:44 General appearance: Present: no acute distress HEART Score - HEART Score EKG: Normal Age: 45-65 Risk factors: 1-2 risk factors Troponin: Troponin T < 0.010 ng/mL (0.00-0.029) 11/22/20 12:51 Troponin: < normal limit - Critical Actions Critical Actions: 0-3 pts:0.9-1.7%risk of adverse cardiac event.Candidate for discharge Results - Labs CBC & Chem 7: 11/23/20 04:29 11/23/20 04:29 Labs: Laboratory Last Values WBC 2.7 K/mm3 (4.5-11.0) L 11/23/20 04:29 RBC 4.24 M/mm3 (3.65-5.03) 11/23/20 04:29 Hgb 10.3 gm/dl (10.1-14.3) 11/23/20 04:29 Hct 31.9 % (30.3-42.9) 11/23/20 04:29 MCV 75 fl (79-97) L 11/23/20 04:29 MCH 24 pg (28-32) L 11/23/20 04:29 MCHC 32 % (30-34) 11/23/20 04:29 RDW 17.9 % (13.2-15.2) H 11/23/20 04:29 Plt Count 346 K/mm3 (140-440) 11/23/20 04:29 Lymph % (Auto) 30.6 % (13.4-35.0) 11/23/20 04:29 [place] % (Auto) 12.0 % (0.0-7.3) H 11/23/20 04:29 Eos % (Auto) 1.5 % (0.0-4.3) 11/23/20 04:29 Baso % (Auto) 0.5 % (0.0-1.8) 11/23/20 04:29 Lymph # (Auto) 0.8 K/mm3 (1.2-5.4) L 11/23/20 04:29 [place] # (Auto) 0.3 K/mm3 (0.0-0.8) 11/23/20 04:29 Eos # (Auto) 0.0 K/mm3 (0.0-0.4) 11/23/20 04:29 Baso # (Auto) 0.0 K/mm3 (0.0-0.1) 11/23/20 04:29 Seg Neutrophils % 55.4 % (40.0-70.0) 11/23/20 04:29 Seg Neutrophils # 1.5 K/mm3 (1.8-7.7) L 11/23/20 04:29 PT 13.5 Sec. (12.2-14.9) 11/21/20 22:18 INR 0.97 (0.87-1.13) 11/21/20 22:18 APTT 29.3 Sec. (24.2-36.6) 11/21/20 22:18 Sodium 137 mmol/L (137-145) 11/23/20 04:29 Potassium 3.6 mmol/L (3.6-5.0) 11/23/20 04:29 Chloride 100.6 mmol/L (98-107) 11/23/20 04:29 Carbon Dioxide 21 mmol/L (22-30) L 11/23/20 04:29 Anion Gap 19 mmol/L 11/23/20 04:29 BUN 12 mg/dL (7-17) 11/23/20 04:29 Creatinine 0.7 mg/dL (0.6-1.2) 11/23/20 04:29 Estimated GFR > 60 ml/min 11/23/20 04:29 BUN/Creatinine Ratio 17 % 11/23/20 04:29 Glucose 77 mg/dL (65-100) 11/23/20 04:29 Calcium 9.1 mg/dL (8.4-10.2) 11/23/20 04:29 Total Bilirubin 0.30 mg/dL (0.1-1.2) 11/21/20 22:12 AST 15 units/L (5-40) 11/21/20 22:12 ALT 7 units/L (7-56) 11/21/20 22:12 Alkaline Phosphatase 80 units/L (35-129) 11/21/20 22:12 Troponin T < 0.010 ng/mL (0.00-0.029) 11/22/20 12:51 Total Protein 7.5 g/dL (6.3-8.2) 11/21/20 22:12 Albumin 4.6 g/dL (3.9-5) 11/21/20 22:12 Albumin/Globulin Ratio 1.6 % 11/21/20 22:12 [place]/IV: Voiding Method Toilet Active Medications - Current Medications Current Medications: Generic Name Dose Route Start Last Admin Trade Name Freq PRN Reason Stop Dose Admin Acetaminophen 650 mg 11/22/20 01:48 Acetaminophen 325 Mg Tab PO Q4H PRN Pain MILD(1-3)/Fever >100.5/REINA Albuterol 2.5 mg 11/22/20 01:48 Albuterol 2.5 Mg/3 Ml Nebu IH Q4HRT PRN Shortness Of Breath Amlodipine Besylate 5 mg 11/22/20 11:00 11/22/20 12:14 Amlodipine 5 Mg Tab PO 5 mg DAILY MARTHA Administration Aspirin 325 mg 11/23/20 10:00 Aspirin Ec 325 Mg Tab PO QDAY [facility]A Atorvastatin Calcium 80 mg 11/22/20 22:00 11/22/20 21:27 Atorvastatin 40 Mg Tab PO 80 mg QHS [facility]THA Administration Carvedilol 25 mg 11/22/20 11:00 11/22/20 21:27 Carvedilol 25 Mg Tab PO 25 mg BID MARTHA Administration Famotidine 20 mg 11/22/20 10:00 11/22/20 21:27 Famotidine 20 Mg Tab PO 20 mg BID MARTHA Administration Heparin Sodium (Porcine) 5,000 unit 11/22/20 06:00 11/23/20 07:07 Heparin 5,000 Unit/1 Ml Vial SUB-Q 5,000 unit Q8HR [facility]A Administration Hydralazine HCl 10 mg 11/22/20 01:53 Hydralazine 20 Mg/1 Ml Inj IV Q6H PRN htn Ibuprofen 400 mg 11/22/20 10:54 11/22/20 12:13 Ibuprofen 400 Mg Tab PO 400 mg Q6H PRN Administration Pain, Mild (1-3) Losartan Potassium 25 mg 11/22/20 11:00 11/22/20 12:15 Losartan 25 Mg Tab PO 25 mg QDAY [facility]THA Administration Morphine Sulfate 2 mg 11/22/20 01:48 11/22/20 04:12 Morphine 2 Mg/1 Ml Inj IV 2 mg Q5MIN PRN Administration Chest Pain Ondansetron HCl 4 mg 11/22/20 01:48 Ondansetron 4 Mg/2 Ml Inj IV Q8H PRN Nausea And Vomiting Sodium Chloride 10 ml 11/22/20 10:00 11/22/20 21:27 Sodium Chloride 0.9% 10 Ml Flush Syringe IV 10 ml BID MARTHA Administration Sodium Chloride 10 ml 11/22/20 01:48 Sodium Chloride 0.9% 10 Ml Flush Syringe IV PRN PRN LINE FLUSH
--- NOTE | 2020-11-23 09:58 | Electrocardiograph Report ---
[facility] Test Date: 2020-11-21 Test Time: 21:33:52 Pat Name: CLEMENTINA ESTRADA Department: Room: A457 1 Gender: F Anatomic Pathology Assistant: ELIEL : 1975 Requested By: MINERVA JOHNSON Order Number: [id number] Reading MD: Norris Woodward Measurements Intervals [place] Rate: 98 P: 76 CT: 168 QRS: 64 QRSD: 81 T: 20 QT: 336 QTc: 430 Interpretive Statements Sinus rhythm Consider left ventricular hypertrophy No previous ECG available for comparison Electronically Signed On 11-23-2020 9:57:44 EDT by Norris Woodward
--- NOTE | 2020-11-23 09:59 | Electrocardiograph Report ---
[facility] Test Date: 2020-11-21 Test Time: 22:49:22 Pat Name: CLEMENTINA ESTRADA Department: Room: A457 1 Gender: F Customer Sales Distributor: STEVEN : 1975 Requested By: MINERVA JOHNSON Order Number: [id number] Reading MD: Norris Woodward Measurements Intervals [place] Rate: 87 P: 57 ND: 169 QRS: 51 QRSD: 81 T: 34 QT: 357 QTc: 429 Interpretive Statements Sinus rhythm Consider left ventricular hypertrophy Compared to ECG 11/21/2020 21:33:52 No significant changes Electronically Signed On 11-23-2020 9:58:51 EDT by Norris Woodward
[2020-11-23] MEDS ORDERED: ASPIRIN EC 325 MG TAB PO SCH (10:00)
--- NOTE | 2020-11-23 10:09 | Progress Note ---
Assessment and Plan Echo reviewed - EF 55-60%, mild diastolic dysfxn. Awaiting results of Lexiscan stress MPI this AM. Otherwise stable cardiac status. Pt seen in conjunction with Dr. Woodward, who agrees with the assessment and plan of care. - Patient Problems (1) Chest pain Current Visit: Yes Status: Acute (2) Back pain Current Visit: Yes Status: Acute (3) Thoracic aortic aneurysm (TAA) Current Visit: Yes Status: Chronic Qualifiers: Presence of rupture: without rupture Qualified Code(s): I71.2 - Thoracic aortic aneurysm, without rupture (4) GOYO (obstructive sleep apnea) Current Visit: Yes Status: Chronic (5) HTN (hypertension) Current Visit: Yes Status: Chronic Qualifiers: Hypertension type: essential hypertension Qualified Code(s): I10 - Essential (primary) hypertension (6) Hyperlipidemia Current Visit: Yes Status: Chronic Qualifiers: Hyperlipidemia type: pure hypercholesterolemia Qualified Code(s): E78.00 - Pure hypercholesterolemia, unspecified; E78.0 - Pure hypercholesterolemia (7) GERD (gastroesophageal reflux disease) Current Visit: Yes Status: Chronic (8) Arthritis Current Visit: Yes Status: Chronic (9) Left kidney mass Current Visit: No Status: Chronic (10) S/p nephrectomy Current Visit: Yes Status: Chronic Subjective Date of service: 11/23/20 Principal diagnosis: Chest Pain/Back Pain Interval history: Seen in stress lab this AM. No further complaints of chest pain. Objective Last Vital Signs Temp 98.2 F 11/23/20 03:44 Pulse 80 11/23/20 06:00 Resp 18 11/23/20 03:44 BP 123/82 11/23/20 03:44 Pulse Ox 100 11/23/20 03:44 - Physical Examination General: No Apparent Distress HEENT: Positive: EOMI, Normocephaly, Mucus Membranes Moist Neck: Positive: neck supple, trachea midline. Negative: JVD/HJR Cardiac: Positive: Reg Rate and Rhythm, S1/S2 Lungs: Positive: clear to auscultation (bilaterally) Neuro: Positive: Grossly Intact Abdomen: Positive: Soft. Negative: Tender Skin: Negative: Rash Musculoskeletal: No Pain Extremities: Present: lower extr. pulses. Absent: edema - Labs and Meds CBC 11/23/20 Range/Units 04:29 WBC 2.7 L (4.5-11.0) K/mm3 RBC 4.24 (3.65-5.03) M/mm3 Hgb 10.3 (10.1-14.3) gm/dl Hct 31.9 (30.3-42.9) % Plt Count 346 (140-440) K/mm3 Lymph # (Auto) 0.8 L (1.2-5.4) K/mm3 [place] # (Auto) 0.3 (0.0-0.8) K/mm3 Eos # (Auto) 0.0 (0.0-0.4) K/mm3 Baso # (Auto) 0.0 (0.0-0.1) K/mm3 Comprehensive Metabolic Panel 11/23/20 Range/Units 04:29 Sodium 137 (137-145) mmol/L Potassium 3.6 (3.6-5.0) mmol/L Chloride 100.6 (98-107) mmol/L Carbon Dioxide 21 L (22-30) mmol/L BUN 12 (7-17) mg/dL Creatinine 0.7 (0.6-1.2) mg/dL Glucose 77 (65-100) mg/dL Calcium 9.1 (8.4-10.2) mg/dL - Imaging and Cardiology EKG: report reviewed, image reviewed Pharmacologic stress test: other (12/2017 - no evidence of significant ischemia) Echo: report reviewed (11/22/2020 - EF 55-60%, mild diastolic dysfxn), other (10/2015 - EF 55-60%, asymmetric thickening of the interventricular septum (may be overestimated), impaired LV relaxation, normal RV fxn, no significant valvul ar abnormalities) - Telemetry EKG Rhythm: Sinus Rhythm - EKG Sinus rhythms and dysrhythmias: sinus rhythm
--- NOTE | 2020-11-23 10:14 | Electrocardiograph Report ---
[facility] Test Date: 2020-11-22 Test Time: 11:54:48 Pat Name: CLEMENTINA ESTRADA Department: Room: A457 1 Gender: F Audio Experience Expert: ANDIE : 1975 Requested By: DALE GRANADOS Order Number: [id number] Reading MD: Norris Woodward Measurements Intervals [place] Rate: 76 P: 33 AL: 163 QRS: 43 QRSD: 85 T: 19 QT: 398 QTc: 447 Interpretive Statements Sinus rhythm Consider left ventricular hypertrophy Compared to ECG 11/21/2020 22:49:22 No significant changes Electronically Signed On 11-23-2020 10:14:12 EDT by Norris Woodward
[2020-11-23 11:01] VITALS: BP 113/83
[2020-11-23] MEDS: FAMOTIDINE 20 MG TAB PO SCH (11:08)
[2020-11-23] MEDS: carvediloL 25 MG TAB PO SCH (11:08)
[2020-11-23] MEDS: amLODIPine 5 MG TAB PO SCH (11:09)
[2020-11-23] MEDS: LOSARTAN 25 MG TAB PO SCH (11:09)
--- NOTE | 2020-11-23 11:39 | Discharge Summary ---
Providers - Providers Date of Admission: 11/22/20 01:13 Date of discharge: 11/23/20 Attending physician: RADHA SCHUSTER MD 11/22/20 Consult to Cardiac Rehabilitation [CONS] Routine Reason For Exam: Phase I 11/22/20 01:48 Consult to Cardiology [CONS] Routine Consulting Provider: SUE RAMIREZ Reason For Exam: Chest pain Primary care physician: NEW ORDER CLERK Hospitalization Reason for admission: Chest pain Condition: Stable Pertinent studies: Cardiac stress test; negative for ischemia Hospital course: History of present illness: 45-year-old -[place] female with history of hypertension, thoracic aneurysm, high cholesterol, sleep apnea, and has a history of a left nephrectomy secondary to renal cancer was brought to the emergency department with a complaint of mid to upper thoracic back pain with radiation to the middle of her chest 03/01 for few hours prior to presentation. She says that it is a severe pressure-like discomfort and it worsens when laying flat. Patient also had a headache earlier that has since resolved. She denies any fever, cough, shortness of breath, lower extremity swelling, nausea, vomiting or diaphoresis. She has not taken anything for symptoms prior to presentation today. She has a significant family history of early cardiac disease in her mother and father who had MIs in their late 30s and early 40s. Denies tobacco or illicit drug use. No recent travel or sick contacts at home. Her primary care physician is through [facility], and she follows with Dr. Brewer for cardiology. In the emergency room initial cardiac enzyme is negative troponin is 0.010 Hospital course (1) Acute coronary syndrome Current Visit: Yes Status: Acute Plan to address problem: Admit the patient to the medical telemetry. Aspirin 325 mg p.o. daily. Lipitor 80 mg p.o. daily. Nitroglycerin 1 inch to the chest wall every 6 hours. We do the serial cardiac enzyme. We also do echocardiogram and consult cardiology (2) Aortic aneurysm Current Visit: No Status: Acute Plan to address problem: Stable. We will continue the home medication. Will consult cardiology for evaluation (3) HTN (hypertension) Current Visit: No Status: Chronic Qualifiers: Hypertension type: essential hypertension Qualified Code(s): I10 - Essential (primary) hypertension Plan to address problem: Hydrochlorothiazide 25 mg p.o. daily, hydralazine 10 mg every 6 hours as needed. Diovan 160 mg p.o. daily. We will monitor the blood pressure closely (4) Hyperlipidemia Current Visit: No Status: Chronic Qualifiers: Hyperlipidemia type: Mixed hyperlipidemia Qualified Code(s): E78.2 - Mixed hyperlipidemia Plan to address problem: We will put the patient on Lipitor 80 mg p.o. daily. We will recheck the lipid panel in the morning (5) DVT prophylaxis Current Visit: No Status: Acute Plan to address problem: Heparin 5000 units subcu every 8 hours for DVT prophylaxis. Pepcid 20 mg p.o. twice daily for GI prophylaxis. Patient is a full code 11/23/2020 -Patient will have stress test -Reviewed echo Patient was seen and evaluated this morning, chest pain is getting better, stress test was done and was negative. Cardiology cleared the patient for discharge. Patient discharged home. Patient was hemodynamically stable at the time of discharge. Patient need to have follow-up with her primary care physician as an outpatient. Disposition: TO HOME OR SELFCARE Final Discharge Diagnosis (Prints w/discharge instructions): Chest pain Time spent for discharge: 32 minutes - Discharge Diagnoses (1) Acute chest pain Status: Acute (2) Angina at rest Status: Acute (3) GERD (gastroesophageal reflux disease) Status: Chronic (4) HTN (hypertension) Status: Chronic Qualifiers: Hypertension type: essential hypertension Qualified Code(s): I10 - Essential (primary) hypertension Comment: reasonable-to be compliant (5) GOYO (obstructive sleep apnea) Status: Chronic (6) S/p nephrectomy Status: Chronic (7) Thoracic aortic aneurysm (TAA) Status: Chronic Qualifiers: Presence of rupture: without rupture Qualified Code(s): I71.2 - Thoracic aortic aneurysm, without rupture Core Measure Documentation - Palliative Care Palliative Care/ Comfort Measures: Not Applicable - Core Measures Any of the following diagnoses?: none Exam - Physical Exam Narrative exam: Not in cardiopulmonary distress. The patient appeared well nourished and normally developed. Vital signs as documented. Head exam is unremarkable. No scleral icterus . Neck is without jugular venous distension, thyromegaly, or carotid bruits. Lungs are clear to auscultation. Cardiac exam reveals regular rate and Rhythm. Abdominal exam reveals normal bowel sounds, nontender, no organomegaly. Extremities are nonedematous and both femoral and pedal pulses are normal. TRASH MAN: Alert and oriented 3. No focal weakness. - Constitutional Vitals: Temp Pulse Resp BP Pulse Ox 98.7 F 93 H 18 113/83 100 11/23/20 10:32 11/23/20 11:08 11/23/20 10:32 11/23/20 11:08 11/23/20 10:32 Plan Activity: no restrictions Weight Bearing Status: Full Weight Bearing Diet: low cholesterol, low salt Follow up with: PRIMARY CARE, [Primary Care Provider] - 3-5 Days Prescriptions: oxyCODONE /ACETAMINOPHEN [Percocet 5/325] 1 tab PO Q6HR PRN #10 tablet PRN Reason: Pain
== END 2020-11-23 13:45 | disposition home or self-care (01) ==
LOC: ED 21:21 → 4A 11-22 01:13
PROVIDERS: ADMIT Hospitalist; ATTEND Internal Medicine
DX: I24.9 Acute ischemic heart disease, unspecified (principal); I71.9 Aortic aneurysm of unspecified site, without rupture; I10 Essential (primary) hypertension; E78.2 Mixed hyperlipidemia; R07.9 Chest pain, unspecified; M19.90 Unspecified osteoarthritis, unspecified site; G47.33 Obstructive sleep apnea (adult) (pediatric); K21.9 Gastro-esophageal reflux disease without esophagitis; N28.89 Other specified disorders of kidney and ureter; Z79.899 Other long term (current) drug therapy; Z98.890 Other specified postprocedural states; Z79.82 Long term (current) use of aspirin
CPT/HCPCS: 36415; 71046; 71275; 78452; 80048; 80053; 84484; 85025; 85610; 85730; 93005; 93017; 93306; 94640; 96361; 96372; 96374; 96375; 99285; A9270; A9502; G0378; J1644; J2270; J2405; J2785; J7030; Q9967

== ENCOUNTER 2021-06-03 11:56 | Emergency (ER) | payer OTHER ==
[2021-06-03] MEDS ORDERED: MORPHINE 4 MG/1 ML INJ IV ONE (12:31)
[2021-06-03] MEDS ORDERED: ONDANSETRON 4 MG/2 ML INJ IV ONE (12:31)
[2021-06-03] MEDS ORDERED: SODIUM CHLORIDE 0.9% 1000 ML 1,000 ML IV ONE (12:31)
--- NOTE | 2021-06-03 13:35 | Emergency Department Report ---
ED Abdominal Pain HPI - General Chief Complaint: Abdominal Pain Stated Complaint: LEFT LOWER ABD PAIN Time Seen by Provider: 06/03/21 12:27 Source: patient Mode of arrival: Ambulatory Limitations: No Limitations - History of Present Illness Initial Comments: Patient is a 45-year-old female presents emergency room complaints of left lower quadrant abdominal pain that began 1 hour prior to arrival. She denies any nausea, vomiting, diarrhea, hematochezia, melena, hematemesis, urinary symptoms, CP, SOB, back pain. She states that she was having some constipation but was able to have a normal bowel movement this morning. She has a past abdominal binu gical history of partial nephrectomy and gastric sleeve. She reports that she had a partial nephrectomy due to renal cancer but did not have to undergo chemo or radiation. She states that she also has a history of a thoracic aortic aneurysm which they are currently observing that she reports it is 4.7 cm. No allergies to medication. Severity scale (0 -10): 10 - Related Data Home Medications Medication Instructions Recorded Confirmed Last Taken Losartan [Cozaar] 25 mg PO QDAY 11/22/20 11/22/20 1 Day Ago ~11/21/20 amLODIPine 5 mg PO DAILY 11/22/20 11/22/20 1 Day Ago ~11/21/20 carvediloL [Coreg] 25 mg PO BID 11/22/20 11/22/20 1 Day Ago ~11/21/20 Previous Rx's Medication Instructions Recorded Last Taken Type oxyCODONE /ACETAMINOPHEN [Percocet 1 tab PO Q6HR PRN #10 tablet 11/23/20 Unknown Rx 5/325] Ondansetron [Zofran Odt] 4 mg PO Q8HR PRN #12 tab.rapdis 06/03/21 Unknown Rx traMADoL [Ultram 50 MG tab] 50 mg PO Q6HR PRN #12 tablet 06/03/21 Unknown Rx Allergies Allergy/AdvReac Type Severity Reaction Status Date / Time No Known Allergies Allergy Verified 06/03/21 11:59 ED Review of Systems ROS: Stated complaint: LEFT LOWER ABD PAIN Other details as noted in HPI Comment: All other systems reviewed and negative ED Past Medical Hx - Past Medical History Hx Hypertension: Yes Hx Heart Attack/AMI: No Hx Congestive Heart Failure: No Hx Diabetes: No Hx Deep Vein Thrombosis: No Hx Pulmonary Embolism: No Hx Arthritis: Yes Hx Asthma: No Hx COPD: No Hx Tuberculosis: No Hx HIV: No Additional medical history: AAA-- 4.1 CM IN OCTOBER. HIGH CHOLESTEROL, sleep apnea, aortic anurism - Surgical History Hx Coronary Stent: No Hx Pacemaker: No Hx Internal Defibrillator: No Additional Surgical History: TONSILLECTOMY, gastric sleeve 12/01/18. L partial kidney removal, secondary to Ca 03/2020 - Social History Smoking Status: Never Smoker - Medications Home Medications: Home Medications Medication Instructions Recorded Confirmed Last Taken Type Losartan [Cozaar] 25 mg PO QDAY 11/22/20 11/22/20 1 Day Ago History ~11/21/20 amLODIPine 5 mg PO DAILY 11/22/20 11/22/20 1 Day Ago History ~11/21/20 carvediloL [Coreg] 25 mg PO BID 11/22/20 11/22/20 1 Day Ago History ~11/21/20 oxyCODONE /ACETAMINOPHEN [Percocet 1 tab PO Q6HR PRN #10 tablet 11/23/20 Unknown Rx 5/325] Ondansetron [Zofran Odt] 4 mg PO Q8HR PRN #12 tab.rapdis 06/03/21 Unknown Rx traMADoL [Ultram 50 MG tab] 50 mg PO Q6HR PRN #12 tablet 06/03/21 Unknown Rx ED Physical Exam - General Limitations: No Limitations General appearance: alert, in no apparent distress - Head Head exam: Present: atraumatic, normocephalic - Eye Eye exam: Present: normal appearance - ENT ENT exam: Present: mucous membranes moist - Respiratory Respiratory exam: Present: normal lung sounds bilaterally. Absent: respiratory distress, wheezes, rales, rhonchi, stridor, chest wall tenderness, accessory muscle use, decreased breath sounds, prolonged expiratory - Cardiovascular Cardiovascular Exam: Present: regular rate, normal rhythm, normal heart sounds. Absent: systolic murmur, diastolic murmur, rubs, gallop - GI/Abdominal GI/Abdominal exam: Present: soft, tenderness (LLQ), normal bowel sounds. Absent: distended, guarding, rebound, rigid - Neurological Exam Neurological exam: Present: alert, oriented X3 - Psychiatric Psychiatric exam: Present: normal affect, normal mood - Skin Skin exam: Present: warm, dry, intact ED Course Vital Signs 06/03/21 06/03/21 13:01 15:03 Temperature 98.3 F Pulse Rate 83 Respiratory 16 16 Rate Blood Pressure 130/88 [Left] O2 Sat by Pulse 99 Oximetry ED Medical Decision Making - Lab Data Result diagrams: 06/03/21 12:37 06/03/21 12:37 Lab Results 06/03/21 06/03/21 06/03/21 Range/Units 12:37 12:37 12:37 WBC 3.2 L (4.5-11.0) K/mm3 RBC 4.50 (3.65-5.03) M/mm3 Hgb 10.0 L (10.1-14.3) gm/dl Hct 33.3 (30.3-42.9) % MCV 74 L (79-97) fl MCH 22 L (28-32) pg MCHC 30 (30-34) % RDW 21.1 H (13.2-15.2) % Plt Count 508 H (140-440) K/mm3 Baso % (Auto) Capital Project Engineer Sodium 140 (137-145) mmol/L Potassium 4.8 (3.6-5.0) mmol/L Chloride 103.9 (98-107) mmol/L Carbon Dioxide 21 L (22-30) mmol/L Anion Gap 20 mmol/L BUN 10 (7-17) mg/dL Creatinine 0.7 (0.6-1.2) mg/dL Estimated GFR > 60 ml/min BUN/Creatinine Ratio 14 % Glucose 79 (65-100) mg/dL Calcium 9.4 (8.4-10.2) mg/dL Total Bilirubin 0.30 (0.1-1.2) mg/dL AST 24 (5-40) units/L ALT 8 (7-56) units/L Alkaline Phosphatase 74 (35-129) units/L Total Protein 8.1 (6.3-8.2) g/dL Albumin 4.5 (3.9-5) g/dL Albumin/Globulin Ratio 1.3 % Lipase 24 (13-60) units/L HCG, Qual Negative (Negative) Urine Color (Yellow) Urine Turbidity (Clear) Urine pH (5.0-7.0) Ur Specific [place] (1.003-1.030) Urine Protein (Negative) mg/dL Urine Glucose (UA) (Negative) mg/dL Urine Ketones (Negative) mg/dL Urine Blood (Negative) Urine Nitrite (Negative) Urine Bilirubin (Negative) Urine Urobilinogen (<2.0) mg/dL Ur Leukocyte Esterase (Negative) Urine WBC (Auto) (0.0-6.0) /HPF Urine RBC (Auto) (0.0-6.0) /HPF U Epithel Cells (Auto) (0-13.0) /HPF Urine Mucus /HPF 06/03/21 Range/Units Unknown WBC (4.5-11.0) K/mm3 RBC (3.65-5.03) M/mm3 Hgb (10.1-14.3) gm/dl Hct (30.3-42.9) % MCV (79-97) fl MCH (28-32) pg MCHC (30-34) % RDW (13.2-15.2) % Plt Count (140-440) K/mm3 Baso % (Auto) Sodium (137-145) mmol/L Potassium (3.6-5.0) mmol/L Chloride (98-107) mmol/L Carbon Dioxide (22-30) mmol/L Anion Gap mmol/L BUN (7-17) mg/dL Creatinine (0.6-1.2) mg/dL Estimated GFR ml/min BUN/Creatinine Ratio % Glucose (65-100) mg/dL Calcium (8.4-10.2) mg/dL Total Bilirubin (0.1-1.2) mg/dL AST (5-40) units/L ALT (7-56) units/L Alkaline Phosphatase (35-129) units/L Total Protein (6.3-8.2) g/dL Albumin (3.9-5) g/dL Albumin/Globulin Ratio % Lipase (13-60) units/L HCG, Qual (Negative) Urine Color Yellow (Yellow) Urine Turbidity Slightly-cloudy (Clear) Urine pH 6.0 (5.0-7.0) Ur Specific [place] 1.020 (1.003-1.030) Urine Protein <15 mg/dl (Negative) mg/dL Urine Glucose (UA) Neg (Negative) mg/dL Urine Ketones Neg (Negative) mg/dL Urine Blood Neg (Negative) Urine Nitrite Neg (Negative) Urine Bilirubin Neg (Negative) Urine Urobilinogen < 2.0 (<2.0) mg/dL Ur Leukocyte Esterase Neg (Negative) Urine WBC (Auto) 2.0 (0.0-6.0) /HPF Urine RBC (Auto) 2.0 (0.0-6.0) /HPF U Epithel Cells (Auto) 31.0 H (0-13.0) /HPF Urine Mucus 2+ /HPF Vital Signs 06/03/21 06/03/21 13:01 15:03 Temperature 98.3 F Pulse Rate 83 Respiratory 16 16 Rate Blood Pressure 130/88 [Left] O2 Sat by Pulse 99 Oximetry - Radiology Data Radiology results: report reviewed Ordering Physician: VINCENT CANTU Date of Service: 06/03/21 Procedure(s): CT abdomen pelvis w con Accession Number(s): [id number] cc: VINCENT CANTU CT ABDOMEN AND PELVIS WITH IV CONTRAST INDICATION: LLQ abd pain, hx of renal CA, thoracic aneursym. COMPARISON: CT 01/05/2018. TECHNIQUE: All CT scans at this facility use dose modulation, automated exposure control, iterative reconstruction or weight based dosing, when appropriate, to reduce radiation dose to as low as reasonably achievable. FINDINGS: Lung Bases: No significant abnormality. Skeletal System: No acute abnormality. ABDOMEN: Liver: No significant abnormality. Gallbladder: No significant abnormality. Bile Ducts: No significant abnormality. Adrenals: No significant abnormality. Right Kidney: No significant abnormality. Left Kidney: There is postsurgical change along the lateral cortex of the lower pole. No acute finding. Pancreas: No significant abnormality. Spleen: No significant abnormality. Upper GI tract: Postsurgical changes related to gastric sleeve. No acute finding. Lymph Nodes: No significant adenopathy. Aorta: No significant abnormality. Additional Findings: No significant abnormality. PELVIS: Colon: No acute abnormality. Urinary Bladder and Distal Ureters: No significant abnormality. Appendix: No significant abnormality. Lymph Nodes: No significant adenopathy. Additional Findings: Exophytic/pedunculated uterine fibroids are noted. These are unchanged. IMPRESSION: 1. No acute process in the abdomen or pelvis. 2. Incidental findings, as above. Signer Name: Boris Palumbo MD Signed: 06/03/2021 3:32 PM Workstation Name: [id number] Transcribed By: TITO Dictated By: Boris Palumbo MD Electronically Authenticated By: Boris Palumbo MD Signed Date/Time: 06/03/21 1532 DD/ 1526 TD/TT: - Medical Decision Making Patient is a 45-year-old female presents emergency room complaints of left lower quadrant abdominal pain that began 1 hour prior to arrival. She denies any nausea, vomiting, diarrhea, hematochezia, melena, hematemesis, urinary symptoms, CP, SOB, back pain. She states that she was having some constipation but was able to have a normal bowel movement this morning. She has a past abdominal surgical history of partial nephrectomy and gastric sleeve. She reports that s he had a partial nephrectomy due to renal cancer but did not have to undergo chemo or radiation. She states that she also has a history of a thoracic aortic aneurysm which they are currently observing that she reports it is 4.7 cm. No allergies to medication. Vitals are stable. On exam patient has left lower quadrant tenderness outpatient, no guarding, no rebound, no peritoneal signs. Labs are stable. UA with evidence of UTI. CT abdomen pelvis with IV contrast 1. No acute process in the abdomen or pelvis. 2. Incidental findings, as above. Patient given medications on the emergency department with improvement of symptoms. Discussed all results with patient. discussed the importance of GI and primary care follow-up. Discussed return precautions. Advised patient Please take medication as prescribed as needed. Follow-up with your primary care doctor. Follow-up with a GI doctor. Follow-up with CONSTRUCTION CONSULTANT. Return to emergency room for any new or worsening symptoms. Critical care attestation.: If time is entered above; I have spent that time in minutes in the direct care of this critically ill patient, excluding procedure time. ED Disposition Clinical Impression: Abdominal pain Qualifiers: Abdominal location: left lower quadrant Qualified Code(s): R10.32 - Left lower quadrant pain Uterine fibroid Qualifiers: Uterine leiomyoma location: unspecified location Qualified Code(s): D25.9 - Leiomyoma of uterus, unspecified Disposition: 01 HOME / SELF CARE / HOMELESS Is pt being admited?: No Does the pt Need Aspirin: No Condition: Stable Instructions: Abdominal Pain, Adult, Uterine Fibroids, [id number], Abdominal Pain (ED) Additional Instructions: Please take medication as prescribed as needed. Follow-up with your primary care doctor. Follow-up with a GI doctor. Follow-up with CONSTRUCTION CONSULTANT. Return to emergency room for any new or worsening symptoms. Prescriptions: traMADoL [Ultram 50 MG tab] 50 mg PO Q6HR PRN #12 tablet PRN Reason: Pain , Severe (7-10) Ondansetron [Zofran Odt] 4 mg PO Q8HR PRN #12 tab.rapdis PRN Reason: nausea/vomiting Referrals: PRIMARY CAREMD [Primary Care Provider] - 3-5 Days [facility] [Provider Group] - 3-5 Days JIM RAHMAN MD [Staff Physician] - 3-5 Days Time of Disposition: 15:46 Print Language: ESTONIAN
[2021-06-03 14:13] LABS: Mean Corpuscular HGB Conc 30 % (30-34); Mean Corpuscular Volume 74 fl (79-97); Platelet Count 508 K/mm3 (140-440)
[2021-06-03 14:14] LABS: Hematocrit 33.3 % (30.3-42.9); Red Cell Distribution Width 21.1 % (13.2-15.2)
[2021-06-03 14:47] LABS: Alanine Aminotransferase 8 units/L (7-56); Albumin 4.5 g/dL (3.9-5); Blood Urea Nitrogen 10 mg/dL (7-17); Calcium 9.4 mg/dL (8.4-10.2); Hemolysis Index 75
[2021-06-03 14:52] LABS: BUN/Creatinine Ratio 14
[2021-06-03 15:13] VITALS: BP 130/88
[2021-06-03 15:20] LABS: Bilirubin,Urine NEG (Negative); Blood,Urine NEG (Negative); Color,Urine Yellow (Yellow); Mucus,Urine 2+ /HPF; Protein,Urine <15 mg/dL mg/dL (Negative); Urobilinogen,Urine < 2.0 mg/dL (<2.0)
--- NOTE | 2021-06-03 15:36 | Cat Scan Report ---
CT ABDOMEN AND PELVIS WITH IV CONTRAST INDICATION: LLQ abd pain, hx of renal CA, thoracic aneursym. COMPARISON: CT 01/05/2018. TECHNIQUE: All CT scans at this facility use dose modulation, automated exposure control, iterative reconstructi on or weight based dosing, when appropriate, to reduce radiation dose to as low as reasonably achieva ble. FINDINGS: Lung Bases: No significant abnormality. Skeletal System: No acute abnormality. ABDOMEN: Liver: No significant abnormality. Gallbladder: No significant abnormality. Bile Ducts: No significant abnormality. Adrenals: No significant abnormality. Right Kidney: No significant abnormality. Left Kidney: There is postsurgical change along the lateral cortex of the lower pole. No acute findin g. Pancreas: No significant abnormality. Spleen: No significant abnormality. Upper GI tract: Postsurgical changes related to gastric sleeve. No acute finding. Lymph Nodes: No significant adenopathy. Aorta: No significant abnormality. Additional Findings: No significant abnormality. PELVIS: Colon: No acute abnormality. Urinary Bladder and Distal Ureters: No significant abnormality. Appendix: No significant abnormality. Lymph Nodes: No significant adenopathy. Additional Findings: Exophytic/pedunculated uterine fibroids are noted. These are unchanged. IMPRESSION: 1. No acute process in the abdomen or pelvis. 2. Incidental findings, as above. Signer Name: Boris Palumbo MD Signed: 06/03/2021 3:32 PM Workstation Name: [id number]
[2021-06-03 17:51] LABS: Anisocytosis 1+; Hypochromasia 1+; Total Cells Counted 100
[2021-06-03 17:52] LABS: Platelet Estimate Consistent w Auto; Tear Drop Cells Few
== END 2021-06-03 16:18 | disposition home or self-care (01) ==
LOC: ED 11:56
DX: R10.32 Left lower quadrant pain (principal); D25.9 Leiomyoma of uterus, unspecified; I10 Essential (primary) hypertension
CPT/HCPCS: 36415; 74177; 80053; 81001; 83690; 84703; 85007; 85025; 96361; 96374; 96375; 99284; J2270; J2405; J7030; Q9967; Q0162

== ENCOUNTER 2021-11-13 10:23 | Emergency (ER) | payer OTHER ==
[2021-11-13] MEDS ORDERED: ASPIRIN 325 MG TAB PO ONE ×2 (10:39→16:00)
--- NOTE | 2021-11-13 11:30 | XRay Report ---
CHEST 2 VIEWS INDICATION / CLINICAL INFORMATION: Chest tightness since this morning. COMPARISON: 11/21/20. FINDINGS: SUPPORT DEVICES: None. HEART / MEDIASTINUM: The heart size and pulmonary vasculature are normal. The aorta is normal in [place]. LUNGS / PLEURA: No significant pulmonary or pleural abnormality. No pneumothorax. ADDITIONAL FINDINGS: There are surgical changes in the left upper abdomen. There is a right cervical rib. IMPRESSION: No acute abnormality or significant change. Signer Name: Brodie Kraus MD Signed: 11/13/2021 11:25 AM Workstation Name: [id number]
[2021-11-13 11:56] LABS: Basophils % (Auto) 0.5 % (0.0-1.8); Eosinophils % (Auto) 0.5 % (0.0-4.3); Mean Corpuscular HGB Conc 32 % (30-34); Mean Corpuscular Volume 83 fl (79-97); Monocytes # (Auto) 0.3 K/mm3 (0.0-0.8); Monocytes % (Auto) 9.8 % (0.0-7.3); Platelet Count 410 K/mm3 (140-440); Red Blood Count 4.45 M/mm3 (3.65-5.03)
[2021-11-13 12:07] LABS: Alanine Aminotransferase 8 units/L (7-56); Albumin 4.2 g/dL (3.9-5); Blood Urea Nitrogen 8 mg/dL (7-17); Calcium 8.9 mg/dL (8.4-10.2); Hemolysis Index 20
[2021-11-13 12:09] LABS: BUN/Creatinine Ratio 13
[2021-11-13] MEDS ORDERED: ACETAMINOPHEN 325 MG TAB PO ONE (14:46)
[2021-11-13 15:16] VITALS: BP 151/97
--- NOTE | 2021-11-13 15:33 | Emergency Department Report ---
ED General Adult HPI - General Chief complaint: Chest Pain Stated complaint: CHEST TIGHT/BACK PAIN/HEADACHE PUI?: Yes Time Seen by Provider: 11/13/21 14:29 Source: patient, RN notes reviewed, old records reviewed Mode of arrival: Ambulatory Limitations: No Limitations - History of Present Illness Initial comments: The patient was evaluated in the emergency department for symptoms described in the history of present illness. He/she was evaluated in the context of the global COVID-19 pandemic, which necessitated consideration that the patient might be at risk for infection with the virus that causes COVID-19. Institutional protocols and algorithms that pertain to the evaluation of patients at risk for COVID-19 are in a state of rapid change based on information released by regulatory bodies including the CDC and federal and state organizations. These policies and algorithms were followed during the patient's care in the emergency department. Please note that these policies, procedures and recommendations changed on a rapid basis. This is a pleasant and cooperative 46-year-old female. She was recently diagnosed with COVID-19. She also has a history of hypertension, and takes 3 antihypertensive medications. She presents to the ER today with a complaint of chest wall pain, back pain, decreased appetite, loss of taste and smell, malaise, fatigue, and lightheadedness. She reports that last week, her blood pressure was 96 systolic, and she presents to the ER for reassurance. She denies travel, surgery, immobilization, leg pain, leg swelling, DVT/PE risk factors. This patient does not have a history of aortic dissection. In 2014, she had a CTA chest which demonstrated a very small ulcerated plaque. This plaque is redemonstrated February 2015, again without evidence of dissection. The patient has had subsequent CTA chest, April 2016, December 2017, and November 2020. 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 The patient felt much improved in the ER with oral hydration and with acetaminophen. She denies urinary symptoms and the possibility of . Current blood pressure medications include losartan, HCTZ, and Norvasc. She does report the ability to closely follow-up with her outpatient primary care doctor. She also reports a similar sick contacts with COVID symptoms. Additional past history includes probable left-sided renal cell carcinoma, sta tus post partial resection, with nephron sparing surgery as per patient, and history of gastric sleeve. -: days(s) Location: head, back Severity scale (0 -10): 10 Quality: aching Improves with: rest Worsens with: movement, other (Palpation) - Related Data Home Medications Medication Instructions Recorded Confirmed Last Taken Losartan [Cozaar] 25 mg PO QDAY 11/22/20 11/22/20 1 Day Ago ~11/21/20 amLODIPine 5 mg PO DAILY 11/22/20 11/22/20 1 Day Ago ~11/21/20 carvediloL [Coreg] 25 mg PO BID 11/22/20 11/22/20 1 Day Ago ~11/21/20 Previous Rx's Medication Instructions Recorded Last Taken Type oxyCODONE /ACETAMINOPHEN [Percocet 1 tab PO Q6HR PRN #10 tablet 11/23/20 Unknown Rx 5/325] Ondansetron [Zofran Odt] 4 mg PO Q8HR PRN #12 tab.rapdis 06/03/21 Unknown Rx traMADoL [Ultram 50 MG tab] 50 mg PO Q6HR PRN #12 tablet 06/03/21 Unknown Rx Allergies Allergy/AdvReac Type Severity Reaction Status Date / Time No Known Allergies Allergy Verified 06/03/21 11:59 ED Review of Systems ROS: Stated complaint: CHEST TIGHT/BACK PAIN/HEADACHE Other details as noted in HPI Constitutional: malaise. denies: fever Eyes: denies: eye discharge ENT: congestion Respiratory: cough Cardiovascular: other (Chest wall pain) Gastrointestinal: denies: vomiting Genitourinary: denies: dysuria Musculoskeletal: arthralgia, myalgia. denies: back pain Neurological: headache. denies: weakness ED Past Medical Hx - Past Medical History Previous Medical History?: Yes Hx Hypertension: Yes Hx Heart Attack/AMI: No Hx Congestive Heart Failure: No Hx Diabetes: No Hx Deep Vein Thrombosis: No Hx Pulmonary Embolism: No Hx Arthritis: Yes Hx Asthma: No Hx COPD: No Hx Tuberculosis: No Hx HIV: No Additional medical history: AAA-- 4.1 CM IN OCTOBER. HIGH CHOLESTEROL, sleep apnea, aortic anurism - Surgical History Past Surgical History?: Yes Hx Coronary Stent: No Hx Pacemaker: No Hx Internal Defibrillator: No Additional Surgical History: TONSILLECTOMY, gastric sleeve 12/01/18. L partial kidney removal, secondary to Ca 03/2020 - Social History Smoking Status: Never Smoker - Medications Home Medications: Home Medications Medication Instructions Recorded Confirmed Last Taken Type Losartan [Cozaar] 25 mg PO QDAY 11/22/20 11/22/20 1 Day Ago History ~11/21/20 amLODIPine 5 mg PO DAILY 11/22/20 11/22/20 1 Day Ago History ~11/21/20 carvediloL [Coreg] 25 mg PO BID 11/22/20 11/22/20 1 Day Ago History ~11/21/20 oxyCODONE /ACETAMINOPHEN [Percocet 1 tab PO Q6HR PRN #10 tablet 11/23/20 Unknown Rx 5/325] Ondansetron [Zofran Odt] 4 mg PO Q8HR PRN #12 tab.rapdis 06/03/21 Unknown Rx traMADoL [Ultram 50 MG tab] 50 mg PO Q6HR PRN #12 tablet 06/03/21 Unknown Rx ED Physical Exam - General Limitations: No Limitations General appearance: alert, in no apparent distress - Head Head exam: Present: atraumatic, normocephalic - Eye Eye exam: Present: normal appearance, EOMI. Absent: nystagmus - ENT ENT exam: Present: normal exam, normal orophraynx, mucous membranes moist, normal external ear exam - Neck Neck exam: Present: normal inspection, full ROM. Absent: tenderness, meningismus - Respiratory Respiratory exam: Present: normal lung sounds bilaterally, chest wall tenderness. Absent: respiratory distress, wheezes, rales, rhonchi, stridor - Cardiovascular Cardiovascular Exam: Present: regular rate, normal rhythm, normal heart sounds. Absent: bradycardia, tachycardia, irregular rhythm, systolic murmur, diastolic murmur, rubs, gallop - GI/Abdominal GI/Abdominal exam: Present: soft. Absent: distended, tenderness, guarding, rebound, rigid, pulsatile mass - Extremities Exam Extremities exam: Present: normal inspection, full ROM, other (2+ pulses noted in the bilateral upper and lower extremities. There is no palpable cord. ne gative Homans sign. Muscular compartments are soft. The pelvis is stable.). Absent: pedal edema, calf tenderness - Back Exam Back exam: Present: normal inspection. Absent: tenderness, CVA tenderness (R), CVA tenderness (L), paraspinal tenderness, vertebral tenderness - Neurological Exam Neurological exam: Present: alert, oriented X3, normal gait, other (No facial droop. Tongue midline. Extraocular movements intact bilaterally. Facial sensation intact to light touch in V1, V2, V3 distribution bilaterally. 5 and a 5 strength in 4 extremities. Sensation intact to light touch in 4 extremities.). Absent: motor sensory deficit - Psychiatric Psychiatric exam: Present: normal affect, normal mood - Skin Skin exam: Present: warm, dry, intact, normal color. Absent: rash ED Course Vital Signs 11/13/21 11/13/21 11/13/21 10:41 15:12 15:15 Temperature 99.1 F Pulse Rate 74 77 Respiratory 18 14 Rate Blood Pressure 155/109 151/97 Blood Pressure 151/97 [Left] O2 Sat by Pulse 100 100 100 Oximetry 11/13/21 15:16 Temperature Pulse Rate Respiratory 18 Rate Blood Pressure Blood Pressure [Left] O2 Sat by Pulse 100 Oximetry - Pulse Oximetry Interpretation Digit-Finger Initial Pulse Oximetry Readin O2 Sat by Pulse Oximetry: 99 Actions Taken: none ED Medical Decision Making - Lab Data Result diagrams: 11/13/21 11:02 11/13/21 11:02 Vital Signs 11/13/21 11/13/21 11/13/21 10:41 15:12 15:15 Temperature 99.1 F Pulse Rate 74 77 Respiratory 18 14 Rate Blood Pressure 155/109 151/97 Blood Pressure 151/97 [Left] O2 Sat by Pulse 100 100 100 Oximetry 11/13/21 15:16 Temperature Pulse Rate Respiratory 18 Rate Blood Pressure Blood Pressure [Left] O2 Sat by Pulse 100 Oximetry Lab Results 11/13/21 11/13/21 Range/Units 11:02 11:02 WBC 3.5 L (4.5-11.0) K/mm3 RBC 4.45 (3.65-5.03) M/mm3 Hgb 12.0 (10.1-14.3) gm/dl Hct 37.0 (30.3-42.9) % MCV 83 (79-97) fl MCH 27 L (28-32) pg MCHC 32 (30-34) % RDW 16.0 H (13.2-15.2) % Plt Count 410 (140-440) K/mm3 Lymph % (Auto) 29.0 (13.4-35.0) % [place] % (Auto) 9.8 H (0.0-7.3) % Eos % (Auto) 0.5 (0.0-4.3) % Baso % (Auto) 0.5 (0.0-1.8) % Lymph # (Auto) 1.0 L (1.2-5.4) K/mm3 [place] # (Auto) 0.3 (0.0-0.8) K/mm3 Eos # (Auto) 0.0 (0.0-0.4) K/mm3 Baso # (Auto) 0.0 (0.0-0.1) K/mm3 Seg Neutrophils % 60.2 (40.0-70.0) % Seg Neutrophils # 2.1 (1.8-7.7) K/mm3 Sodium 135 L (137-145) mmol/L Potassium 4.1 (3.6-5.0) mmol/L Chloride 105.8 (98-107) mmol/L Carbon Dioxide 18 L (22-30) mmol/L Anion Gap 15 mmol/L BUN 8 (7-17) mg/dL Creatinine 0.6 (0.6-1.2) mg/dL Estimated GFR > 60 ml/min BUN/Creatinine Ratio 13 % Glucose 78 (65-100) mg/dL Calcium 8.9 (8.4-10.2) mg/dL Total Bilirubin 0.30 (0.1-1.2) mg/dL AST 16 (5-40) units/L ALT 8 (7-56) units/L Alkaline Phosphatase 61 (35-129) units/L Troponin T < 0.010 (0.00-0.029) ng/mL Total Protein 7.0 (6.3-8.2) g/dL Albumin 4.2 (3.9-5) g/dL Albumin/Globulin Ratio 1.5 % - EKG Data -: EKG Interpreted by Al EKG shows normal: sinus rhythm Rate: normal - EKG Data When compared to previous EKG there are: no significant change 11/13/21 15:39 The EKG is interpreted at 11: 00 Sinus rhythm, 69 bpm. Normal axis, normal P wave axis, high left ventricular voltage, intervals within normal limits. This EKG is not a STEMI. It appears to be unchanged from prior EKG from November 2020. - Radiology Data Radiology results: pending, report reviewed, image reviewed CHEST 2 VIEWS INDICATION / CLINICAL INFORMATION: Chest tightness since this morning. COMPARISON: 11/21/20. FINDINGS: SUPPORT DEVICES: None. HEART / MEDIASTINUM: The heart size and pulmonary vasculature are normal. The aorta is normal in caliber. LUNGS / PLEURA: No significant pulmonary or pleural ab normality. No pneumothorax. ADDITIONAL FINDINGS: There are surgical changes in the left upper abdomen. There is a right cervical rib. IMPRESSION: No acute abnormality or significant change. Signer Name: Brodie Kraus MD Signed: 11/13/2021 10:25 AM Workstation Name: [id number] CTA CHEST WITH IV CONTRAST INDICATION / CLINICAL INFORMATION: Back and Chest pain, Hx of Thoracic Aneurysm. TECHNIQUE: Axial CT images were obtained through the chest after injection of 100 cc Omnipaque 350 milligrams percent IV contrast. 3 plane MIP and/or 3D reconstructions were produced. All CT scans at this location are performed using CT dose reduction for ALARA by means of automated exposure control. COMPARISON: 12/26/2017 and CTA chest FINDINGS: PULMONARY ARTERIES: No pulmonary emboli. THORACIC AORTA: Slight ectasia of the ascending thoracic aorta without evidence of dissection or aneurysm HEART: No significant abnormality. CORONARY ARTERIES: No significant calcification. PLEURA: No pleural effusion. No pneumothorax. LYMPH NODES: No significant adenopathy. LUNGS: No acute air space or interstitial disease. ADDITIONAL FINDINGS: None. UPPER ABDOMEN: No acute findings. SKELETAL STRUCTURES: No significant osseous abnormality. IMPRESSION: 1. No CT evidence for pulmonary embolism. 2. Slight ectasia of the ascending thoracic aorta without interval change as compared 12/26/2017 Signer Name: Dawson Ugalde MD Signed: 11/21/2020 11:44 PM Workstation Name: [id number] FINAL REPORT EXAM: CT ANGIO CHEST HISTORY: chest pain, hx of dissection TECHNIQUE: Spiral CTA of the chest after the uneventful administration of IV contrast. Multiplanar reformations. 100 mL Omnipaque IV. PRIORS: None available. FINDINGS: Chest: The main and bilateral proximal pulmonary arteries are normally opacified without endoluminal filling defects. Cardiac size within normal limits. Ascending thoracic aorta slightly aneurysmal measuring 4.1 cm in maximal cross-sectional diameter and tapering distally. No apparent pseudoaneurysm or aortic dissection. No significant lymph node enlargement or axillary adenopathy. Lungs show no discrete parenchymal mass, focal consolidation or pleural effusions. No apparent pneumothorax. Visualized upper abdomen grossly unremarkable. Probable fatty infiltration in the liver. IMPRESSION: 1. No evidence of large vessel or central pulmonary emboli. No acute consolidation. 2. Slightly aneurysmal ascending thoracic aorta as reported. Dr. Stark discussed results with Dr. Jarrell on 26 December 2017 at approximately 2008 hours EST. Transcribed By: [facility] Dictated By: WALDO STARK MD Electronically Authenticated By: WALDO STARK MD Signed Date/Time: 12/26/172013 DD/ 13 TD/TT: 12/26/172013 - Medical Decision Making Differential diagnosis, including but not limited to: Orthostasis, COVID long- haul, costochondritis, dehydration Assessment and plan: 46-year-old female, who is not currently tachycardic, tach ypneic or hypoxic, who currently denies DVT/PE risk factors, who is low risk by Wells material for pulmonary embolism, and who is PERC negative, essentially presenting with a symptomatic subacute COVID. Laboratory studies are essentially unremarkable, with the exception of mild leukopenia. Troponin negative x1 in the context of days of symptoms, patient low risk for major adverse cardiac event as per heart score, and had a unremarkable cardiac nuclear stress test November 2020. X-ray of the chest is unremarkable. Patient educated as to the natural history of COVID-19, and the possibility of being a COVID-19 long-haul her. I do suspect that there may be a component of orthostasis and dehydration, so have advised patient to temporarily hold her antihypertensive medications, closely follow-up with her outpatient primary care doctor for repeat checkup and evaluation. Patient has equal pulses in the upper and lower extremities, no pulsatile abdominal mass, and her prior CTA imaging studies dating back to 2014 at this facility have been reviewed, and appreciated. Patient observed in this department for hours without clinical decompensation. Suitable for discharge at this point in time. Return precautions are reviewed. All questions answered Critical care attestation.: If time is entered above; I have spent that time in minutes in the direct care of this critically ill patient, excluding procedure time. ED Disposition Clinical Impression: COVID-19 long hauler Disposition: 01 HOME / SELF CARE / HOMELESS Is pt being admited?: No Does the pt Need Aspirin: No Condition: Good Additional Instructions: Please drink at least 4 cups of water per day. Recommend that patient consume a low-salt diet, and may take Tylenol, 650 mg by mouth, every 4-6 hours as needed for physical pain, maximum daily dose not exceed 3 g per 24 hours. Temporarily hold antihypertensive medications, closely follow-up with your outpatient primary care doctor or cosmetologist within the next 5 to 7 days. Suspect that patient has COVID 19 long-haul symptoms. Please return to the emergency room right away with new pain, worsened pain, migration of pain, projectile vomiting, change in mental status, confusion, inability tolerate liquid feeds, new, worsened or different symptoms not present on the initial emergency room evaluation Referrals: TERESA WILLSON MD [Staff Physician] - 3-5 Days [facility] [Provider Group] - 3-5 Days Forms: Work/School Release Form(ED)
--- NOTE | 2021-11-15 09:58 | Electrocardiograph Report ---
[facility] Test Date: 2021-11-13 Test Time: 10:42:46 Pat Name: CLEMENTINA ESTRADA Department: Room: Gender: F Animal Assisted Therapist: LELIA : 1975 Requested By: ED DOC Order Number: [id number] Reading MD: Eliazar Miranda Measurements Intervals [place] Rate: 69 P: 48 MA: 156 QRS: 47 QRSD: 81 T: 34 QT: 378 QTc: 407 Interpretive Statements Sinus rhythm Compared to ECG 11/22/2020 11:54:48 No significant changes Electronically Signed On 11-15-2021 9:58:30 EDT by Eliazar Miranda
== END 2021-11-13 16:10 | disposition home or self-care (01) ==
LOC: ED 10:23
DX: R07.9 Chest pain, unspecified (principal); U09.9 Post COVID-19 condition, unspecified; I10 Essential (primary) hypertension; M19.90 Unspecified osteoarthritis, unspecified site; E78.00 Pure hypercholesterolemia, unspecified; G47.30 Sleep apnea, unspecified; Z98.890 Other specified postprocedural states
CPT/HCPCS: 36415; 71046; 80053; 84484; 85025; 93005; 99284